=== PATIENT | male | born 1970 | race Caucasian/White ===

== ENCOUNTER 2017-09-10 20:58 | Observation (INO) | payer OTHER, SELFPAY ==
[2017-09-10 20:59] VITALS: BP 146/93; PULSE 76; RESP 17; TEMP 36.6; O2SAT 99; BMI 32.6
[2017-09-10 21:12] VITALS: RESP 16
--- NOTE | 2017-09-10 21:15 | ED.RN ---
ON TRIAGE, PT DENIES ANY CHEST PAIN, WEAKNESS, SLURRED SPEECH. REPORTS HE HAS HAD THIS FOR THREE DAYS, AND HIS FAMILY HIGHLY ENCOURAGED HIM T COME IN.
[2017-09-10 22:12] VITALS: RESP 18
[2017-09-10 22:29] VITALS: BP 130/80; RESP 16
--- NOTE | 2017-09-10 22:41 | CT_ITS ---
STUDY: CT BRAIN WITHOUT CONTRAST REASON FOR EXAM: Male, 47 years old. Vision issues RADIATION DOSAGE (If Supplied By Facility): CTDIvol = ( 60.81 ) mGy, DLP = ( 1021.47 ) mGycm TECHNIQUE: Transaxial CT imaging of the brain was performed without administration of intravenous contrast material. Individualized dose optimization techniques were used for this CT. COMPARISON: 05/16/2016 FINDINGS: Normal soft tissue structures. Normal calvarium. Normal size ventricles and extra-axial spaces for the patient's age. Normal white matter tracts of the cerebral hemispheres. Normal basal ganglia and thalami. Normal brainstem. Normal cerebellum. There is no intracranial hemorrhage. There are no findings of an acute ischemic infarction. Normal visualized paranasal sinuses. CT/Brain/Head without Contrast IMPRESSION: No CT evidence of infarct or hemorrhage. Comment: If there is clinical concern for hyperacute ischemia that is not yet apparent by CT, MRI should be considered if possible. Electronically Signed: Devon Ann MD at 0:20 EDT Tel , Service support ,
--- NOTE | 2017-09-10 22:41 | EKG12_ITS ---
Test Reason : Blood Pressure : / mmHG Vent. Rate : 069 BPM Atrial Rate : 069 BPM P-R Int : 210 ms QRS Dur : 084 ms QT Int : 376 ms P-R-T Axes : 033 011 000 degrees QTc Int : 402 ms Sinus rhythm with 1st degree A-V block Otherwise normal ECG Confirmed by RUSSELL WORLEY, MARY KATE ([id number]), purchase request editor KATHRYN HARRISON ([id number]) on 09/14/2017 12:59:13 PM Referred By: Confirmed By:MAR YKATE WELLS MD
[2017-09-10 23:00] VITALS: RESP 18
[2017-09-10 23:11] LABS: Absolute Lymphocyte Count 2.56 X10^3/ul (0.83-4.51); Absolute Neutrophil Count 1.9 X10^3/uL (2.0-7.7); Basophil# 0.04 X10^3/uL; Basophil% 0.8 % (0-1); Eosinophil# 0.13 X10^3/uL; Eosinophils% 2.5 % (0-5); Hematocrit 44.8 % (40-54); Hemoglobin 15.3 g/dl (13.0-16.5); Lymphocyte # 2.56 X10^3/ul (4.0); Lymphocyte % 48.9 % (19-41); Mean Corp Hgb Conc 34.2 g/gl (32-36); Mean Corpuscular Hgb 30.7 pg (27.0-32.0); Monocyte# 0.63 X10^3/uL; Neutrophil # 1.88 X10^3/uL (2.7-7.7); Neutrophil % 35.8 % (47-70); POSITIVE COUNT NO; POSITIVE DIFFERENTIAL NO; POSITIVE MORPHOLOGY NO; Platelet Count 211 K/mm3 (150-450); RBC Distribution Width CV 13.1 % (11.6-14.6); RBC Distribution Width SD 42.5 fl (35.1-43.9); Red Blood Count 4.98 M/mm3 (4.6-6.2); White Blood Count 5.2 K/mm3 (4.4-11.0)
[2017-09-10 23:22] LABS: Anion Gap 4 (5-15); BUN 18 mg/dL (7-18); BUN/Creat Ratio 21.7 RATIO (10-20); Calcium,Total 8.5 mg/dL (8.5-10.1); Chloride 104 mmol/L (98-107); Creatinine, Serum 0.83 mg/dL (0.70-1.30); EST Glomerular Filtration Rate 105 mL/min (>60); Est Glom Filt Rate - Afr Amer 128 mL/min (>60); Estimated Creatinine Clearance 106.45 ml/min; Glucose 85 mg/dL (74-106); Sodium Level 139 mmol/L (136-145)
[2017-09-10 23:24] LABS: Valproic Acid (Depakene) Level 34 ug/mL (50-100)
[2017-09-11] VITALS (9 sets, daily range): BP systolic 114–137; BP diastolic 65–90; PULSE 67–80; RESP 16; TEMP 36.4–36.7; O2SAT 95–98; BMI 30.9
--- NOTE | 2017-09-11 00:41 | ED.VISSUMM ---
- ER Visit Summary Date of Service: 09/11/17 Chief Complaint: Visual disturbance History of Present Illness: The patient is a 47 M presenting with 2-3 days of halos in his visual webb. He states in the left eye, it is a complete [place] in all 4 quadrants. It is different colors and appears somewhat blurry in the [place] but otherwise his vision is fine and he has no visual field cuts. In the right eye, it is only in the lower visual field, and specifically, only in the nasal lower visual field. He states earlier today he really felt lousy and tired like he could go to sleep but not near syncopal, and during this these disturbances were much more prominent but otherwise the same. It is never gone away. He denies having any headache although just now, he feels slight retro-orbital discomfort bilaterally. He has had no chest symptoms or palpitations. No fevers or other illnesses. No recent head injuries. He had a stroke 2 years ago that mostly gave him weakness in the right lower extremity. He states he does not know why he had a stroke and does not have any hypercoagulable disorders that he knows of, but has regained full function and has no residual deficits. He takes a baby aspirin a day, today when he felt the symptoms were more prominent he took a full aspirin and states that afterwards he noticed some improvement. Symptoms are still there currently, however. Physical Examination: Blood pressure 130/80 and the rest of his vital signs are normal. Afebrile. Keenly alert and oriented ?3 with a GCS 15. Normal neurologic exam with NIHSS -0. There is no visual field cut. PERRL, EOMI. On gross inspection (without slit lamp), his eyes/conjunctivae/corneas appear normal. Neck is supple, no carotid bruits. Heart is regular no murmurs or tachycardia. Lungs clear. Abdomen benign. Normal reflexes, toes downgoing. Test Results: CT head negative, blood work negative, EKG normal. Emergency Department Course and Treatment: His MRI in 2016 showed a small left parietal lobe infarct and was otherwise normal. Discussed with neurology Dr. León, he agrees that it is not possible to create this pattern of visual field disturbances with one lesion, however worst-case scenario he could have embolic phenomenon. Given his prior history, although he did have negative carotid Dopplers and echocardiogram, he recommends admission for further stroke workup and evaluation. Treatment Plan: Admit Disposition: Admit PCU Impression: Bilateral visual disturbance History ischemic stroke This note was generated with [employer] dictation software. It may contain incorrect words, spelling, and punctuation that were not noted in review of the chart prior to signing ED Disposition - Plan for ED Patient: Disposition: Acute Care Hospital [facility] Chief Complaint: Eye Problem Referrals: Yuki oBrrero MD [Primary Care Provider] -
--- NOTE | 2017-09-11 00:47 | ED.DCSUM_ITS ---
- ER Visit Summary Date of Service: 09/11/17 Chief Complaint: Visual disturbance History of Present Illness: The patient is a 47 M presenting with 2-3 days of halos in his visual webb. He states in the left eye, it is a complete [place] in all 4 quadrants. It is different colors and appears somewhat blurry in the [place] but otherwise his vision is fine and he has no visual field cuts. In the right eye, it is only in the lower visual field, and specifically, only in the nasal lower visual field. He states earlier today he really felt lousy and tired like he could go to sleep but not near syncopal, and during this these disturbances were much more prominent but otherwise the same. It is never gone away. He denies having any headache although just now, he feels slight retro- orbital discomfort bilaterally. He has had no chest symptoms or palpitations. No fevers or other illnesses. No recent head injuries. He had a stroke 2 years ago that mostly gave him weakness in the right lower extremity. He states he does not know why he had a stroke and does not have any hypercoagulable disorders that he knows of, but has regained full function and has no residual deficits. He takes a baby aspirin a day, today when he felt the symptoms were more prominent he took a full aspirin and states that afterwards he noticed some improvement. Symptoms are still there currently, however. Physical Examination: Blood pressure 130/80 and the rest of his vital signs are normal. Afebrile. Keenly alert and oriented ?3 with a GCS 15. Normal neurologic exam with NIHSS -0. There is no visual field cut. PERRL, EOMI. On gross inspection (without slit lamp), his eyes/conjunctivae/corneas appear normal. Neck is supple, no carotid bruits. Heart is regular no murmurs or tachycardia. Lungs clear. Abdomen benign. Normal reflexes, toes downgoing. Test Results: CT head negative, blood work negative, EKG normal. Emergency Department Course and Treatment: His MRI in 2016 showed a small left parietal lobe infarct and was otherwise normal. Discussed with neurology Dr. León, he agrees that it is not possible to create this pattern of visual field disturbances with one lesion, however worst-case scenario he could have embolic phenomenon. Given his prior history, although he did have negative carotid Dopplers and echocardiogram, he recommends admission for further stroke workup and evaluation. Treatment Plan: Admit Disposition: Admit PCU Impression: Bilateral visual disturbance History ischemic stroke This note was generated with [employer] dictation software. It may contain incorrect words, spelling, and punctuation that were not noted in review of the chart prior to signing ED Disposition - Plan for ED Patient: Disposition: Acute Care Hospital [facility] Chief Complaint: Eye Problem Referrals: Yuki Borrero MD [Primary Care Provider] -
--- NOTE | 2017-09-11 01:10 | HP.PCM_ITS ---
Problem List (1) History of stroke Status: Chronic (2) Visual field defect Status: Acute History of Present Illness Date of Admission: 09/11/17 Chief Complaint: loss of peripheral vision left eye and partial loss in right eye The patient is a 47 year old male with a significant past medical history of left parietal stroke two years ago presents to the ER with change in vision that started three days ago. He states he has had blurry vision in his left eye and difficulty seeing things when looking down with his right eye. He denies chest pain,shortness of breath no fevers or chills, and no head aches. He has no loss of motor function, ataxia or dysarthria. CT scan of the head is negative for acute changes. In consult with Dr León it was determined that admission with an MRI was warranted due to his past history of CVA. He denies any chemical exposure, no recent travels and he drinks alcohol very rarely. Past Medical History Past Medical History (Chronic Problems): Chronic Problems History of stroke (Chronic) Allergies No Known Allergies Allergy (Verified 09/10/17 20:58) Home Medications: Ambulatory Orders Medication Instructions Recorded Sertraline HCl [Zoloft] 150 mg PO DAILY 05/07/16 Aspirin [Aspirin, Baby] 81 mg PO DAILY@0800 #0 tab.chew 05/08/16 Simvastatin [Zocor] 80 mg PO QHS #30 tablet 05/08/16 Divalproex Sodium [Depakote] 500 mg PO DAILY #30 tablet 05/16/16 Surgical History: no surgical history Smoking Status: Never smoker - *Family History Paternal History Items: Heart Disease, - - multiple people with heart disease on fathers side, father of cancer of unkown source. Review of Systems Constitutional: Denies: Chills, Fever, Weight Change Eyes: Reports: Vision Change HEENT: Denies: Head Aches, Sinus Congestion, Sinus Drainage Cardiovascular: Denies: Chest Pain, Palpitations Respiratory: Denies: Cough, Shortness of breath at rest, Sputum production Gastrointestinal: Denies: Abdominal Pain, Nausea, Vomiting Genitourinary: Denies: Dysuria Musculoskeletal: Denies: Joint Pain, Joint Tenderness Skin: Denies: Rash, Wounds Neurological: Denies: Numbness, Tingling, Focal weakness Psychiatric: Denies: Anxiety, Depression, Homicidal Ideations, Suicidal Ideations Hematologic/ Lymphatic: Denies: Easy Bruising, Easy Bleeding VTE Information - Inpt Only VTE Present on Admission: No VTE Mechan Device Prophylaxis: None VTE Pharm Prophylaxis ordered?: Yes Patient Problems: Active and Suspected Problems Visual field defect (Acute) - Physical Exam General: Alert, Oriented x3, Cooperative HEENT: Atraumatic, PERRLA, EOMI, Normocephalic Neck: Supple, No JVD, Negative Carotid Bruits Lungs: Clear to auscultation, Normal air movement, No rhonchi, No wheeze, No rales Cardiovascular: Regular rate, Regular Rhythm, Normal S1, Normal S2, No murmurs Abdomen: Bowel Sounds Present, Soft, Non Tender Extremities: No edema, Capillary Refill Less than 3 Seconds Skin: No rashes, No breakdown Musculoskeletal: No Tenderness to Palpation of Joints or Extremities Neurological: Cranial nerves II-XII grossly intact Psych/Mental Status: Normal Affect, Appropriate Vital Signs Temp Pulse Resp BP Pulse Ox 97.9 F 76 18 130/80 H 99 09/10/17 20:59 09/10/17 20:59 09/10/17 23:00 09/10/17 22:29 09/10/17 20:59 Oxygen Delivery Method Room Air Weight: 214 lb 11.684 oz Body Mass Index (BMI) 32.6 Finger Stick Blood Glucose 108 Laboratory Tests Past 24 Hrs 09/10/17 09/10/17 09/10/17 22:55 22:55 22:55 WBC 5.2 RBC 4.98 Hgb 15.3 Hct 44.8 MCV 90.0 MCH 30.7 MCHC 34.2 RDW 13.1 RDW Differential 42.5 Plt Count 211 MPV 9.0 Immature Gran % (Auto) 0.000 Neut % (Auto) 35.8 L Lymph % (Auto) 48.9 H [place] % (Auto) 12.0 H Eos % (Auto) 2.5 Baso % (Auto) 0.8 Absolute Neuts (auto) 1.9 L Absolute Lymphs (auto) 2.56 Total Counted Not Reportable Sodium 139 Potassium 4.0 Chloride 104 Carbon Dioxide 31.0 Anion Gap 4 L BUN 18 Creatinine 0.83 Estim Creat Clear Calc 106.45 Est GFR (MDRD) Af Amer 128 Est GFR (MDRD) Non-Af 105 BUN/Creatinine Ratio 21.7 H Glucose 85 Calcium 8.5 Valproic Acid 34 L Assessment/Plan Active and Suspected Problems Visual field defect (Acute) Chronic conditions - History of Left Parietal stroke Plan - admit to PCU - neuro checks per routine protocol - ASA daily - MRI head in am - Consult Dr León for neuro evaluation - LMWH for DVT prophylaxis - continue routine home medications Code Visit OBSV E&M: 66821 Initial observation care L2
--- NOTE | 2017-09-11 01:37 | MRI_ITS ---
STUDY: MRA OF THE HEAD WITHOUT CONTRAST REASON FOR EXAM: Male, 47 years old. History of CVA, vision changes x 2 days, seeing halos. TECHNIQUE: 3-D [id number] (TOF) imaging was performed with MIPs. The study was performed unenhanced. COMPARISON: None. FINDINGS: Normal bilateral petrous carotid arteries. Normal right cavernous carotid artery with a normal supraclinoid bifurcation. Normal left cavernous carotid artery with a normal supraclinoid bifurcation. Normal right A1 segments of the anterior cerebral artery. Normal left A1 segments of the anterior cerebral artery. Normal intact anterior communicating artery (ACOM). Normal bilateral A2 segments of the anterior cerebral arteries. Normal right M1 and M2 segments of the middle cerebral arteries, with a normal M1 bifurcation. Normal left M1 and M2 segments of the middle cerebral arteries, with a normal M1 bifurcation. Normal bilateral vertebral arteries. Normal basilar artery with a normal basilar bifurcation. The visualized bilateral superior cerebellar (SCA) arteries are normal. Normal bilateral P1, P2 and visualized P3 segments of the posterior cerebral arteries. There is no demonstrated aneurysm of the [place]. There is no major vessel occlusion or hemodynamically significant stenosis. There is no demonstrated abnormality of the visualized brain. MRI/MRA Head ONLY without Contrast IMPRESSION: Normal MRA of the head Electronically Signed: Anna Sanon MD at 10:11 EDT Tel , Service support ,
--- NOTE | 2017-09-11 02:23 | NURSING ---
Pt c/o blurry vision around edge of visual field on left side.
--- NOTE | 2017-09-11 05:33 | NURSING ---
Pt denies visual blurriness at this time.
[2017-09-11 07:18] LABS: Cholesterol 127 mg/dL (200); High Density Lipoprotein 41 mg/dL; Triglycerides 264 mg/dL; Very Low Density Lipoprotein 53 mg/dL (5-40)
--- NOTE | 2017-09-11 08:31 | MRI_ITS ---
STUDY: MRI BRAIN WITHOUT CONTRAST REASON FOR EXAM: Male, 47 years old. cva; vision change- seeing halo, hx prev cva 2 yrs ago. TECHNIQUE: Standardized multiplanar fat and water weighted pulse sequences were obtained. COMPARISON: May 08, 2016 FINDINGS: Normal size of the ventricles and extra-axial spaces for the patient's age. There are a limited number of small white matter hyperintensities, distributed throughout the deep white matter tracts of the cerebral hemispheres, nonspecific but most commonly seen with minimal chronic white matter ischemic changes. Normal bilateral basal ganglia. Normal thalami. There is no extra-axial fluid accumulation. Normal flow voids within the major intracranial circulation suggesting patency by spin echo criteria. Normal sella turcica, pituitary gland, infundibular stalk, optic chiasm and hypothalamus. Normal tectal plate and pineal gland. Normal midbrain, main and medulla. Normal cerebellum. Normal basal cisterns. Normal bilateral temporal bones. Normal bilateral internal auditory canals. No demonstrated orbital abnormality, within the constraints of a routine brain study. Normal visualized paranasal sinuses. Normal calvarium and skull base. Normal visualized soft tissue structures. Normal visualized upper cervical spine. MRI/Brain without Contrast IMPRESSION: No acute intracranial abnormality. Electronically Signed: Anna Sanon MD at 10:20 EDT Tel , Service support ,
[2017-09-11 08:41] LABS: Amphetamine Urine VISTA NEGATIVE (<1000 ng/mL); Barbiturate Urine VISTA NEGATIVE (< 200 ng/mL); Benzodiazepine Urine VISTA NEGATIVE (< 200 ng/mL); Cocaine Urine VISTA NEGATIVE (< 300 ng/mL); Ecstacy Urine VISTA NEGATIVE (< 500 ng/mL); Methadone Urine VISTA NEGATIVE (< 300 ng/mL); PCP Urine VISTA NEGATIVE (< 25 ng/mL); THC Urine VISTA NEGATIVE (< 50 ng/mL); Vista UDS pH Range 5
[2017-09-11] MEDS: Divalproex Sodium 250 MG Tablet 500 MG PO (10:15)
[2017-09-11] MEDS: Aspirin 81 MG TAB.CHEW PO (10:15)
[2017-09-11] MEDS: Enoxaparin 40 MG/0.4 ML Syringe SC (10:16)
[2017-09-11] MEDS: Sertraline 50 MG Tablet 150 MG PO (10:17)
--- NOTE | 2017-09-11 12:12 | CON.PCM_ITS ---
Reason for Consult Date of Consultation: 09/11/17 Reason for Consultation: blurry vision History of Present Illness: The patient is a 47 year old right handed white male admitted last night with vision changes, describes outer ring of my vision was blurry, now resolved. without other neurologic symptoms other than felt a little off. noted blood pressure mildly elevated at home 140/93. no headache, reports rare headache, 2x/ yr. has been taking asa since 04/26 stroke which was attributed to cholesterol, however mri at that time equivocal. per h&p:The patient is a 47 year old male with a significant past medical history of left parietal stroke two years ago presents to the ER with change in vision that started three days ago. He states he has had blurry vision in his left eye and difficulty seeing things when looking down with his right eye. He denies chest pain,shortness of breath no fevers or chills, and no head aches. He has no loss of motor function, ataxia or dysarthria. CT scan of the head is negative for acute changes. In consult with Dr León it was determined that admission with an MRI was warranted due to his past history of CVA. He denies any chemical exposure, no recent travels and he drinks alcohol very rarely. Past Medical History Past Medical History (Chronic Problems): Chronic Problems History of stroke (Chronic) Allergies No Known Allergies Allergy (Verified 09/10/17 20:58) Home Medications: Ambulatory Orders Medication Instructions Recorded Sertraline HCl [Zoloft] 150 mg PO DAILY 05/07/16 Aspirin [Aspirin, Baby] 81 mg PO DAILY@0800 #0 tab.chew 05/08/16 Simvastatin [Zocor] 80 mg PO QHS #30 tablet 05/08/16 Divalproex Sodium [Depakote] 500 mg PO DAILY #30 tablet 05/16/16 Surgical History: no surgical history Smoking Status: Former smoker - *Family History Paternal History Items: Heart Disease, - - multiple people with heart disease on fathers side, father of cancer of unkown source. Review of Systems Constitutional: Denies: Chills, Fever, Weight Change HEENT: Denies: Head Aches, Sinus Congestion, Sinus Drainage Cardiovascular: Denies: Chest Pain, Palpitations Respiratory: Denies: Cough, Shortness of breath at rest, Sputum production Gastrointestinal: Denies: Abdominal Pain, Nausea, Vomiting Genitourinary: Denies: Dysuria Musculoskeletal: Denies: Joint Pain, Joint Tenderness Skin: Denies: Rash, Wounds Neurological: Denies: Numbness, Tingling, Focal weakness Psychiatric: Denies: Anxiety, Depression, Homicidal Ideations, Suicidal Ideations Hematologic/ Lymphatic: Denies: Easy Bruising, Easy Bleeding Patient Problems: Active and Suspected Problems Visual field defect (Acute) - Physical Exam General: Alert, Oriented x3, Cooperative HEENT: Atraumatic, PERRLA, EOMI, Normocephalic Neck: Supple, No JVD, Negative Carotid Bruits Lungs: Clear to auscultation, Normal air movement Cardiovascular: Regular rate, No murmurs Abdomen: Bowel Sounds Present, Soft, Non Tender Extremities: No edema, Capillary Refill Less than 3 Seconds Skin: No rashes, No breakdown Musculoskeletal: No Tenderness to Palpation of Joints or Extremities Neurological: Cranial nerves II-XII grossly intact Psych/Mental Status: Normal Affect, Appropriate Vital Signs Temp Pulse Resp BP Pulse Ox 36.7 C 68 16 116/69 96 09/11/17 08:49 09/11/17 11:03 09/11/17 08:49 09/11/17 08:49 09/11/17 08:49 Oxygen Delivery Method Room Air Weight: 92.2 kg Body Mass Index (BMI) 30.9 Intake and Output for Last 24 Hours 09/09/17 09/10/17 09/11/17 23:59 23:59 23:59 Intake Total 0 / 0 Balance 0 / 0 Laboratory Tests Past 24 Hrs 09/11/17 09/11/17 06:25 08:00 Triglycerides 264 H Cholesterol 127 LDL Cholesterol 33 VLDL Cholesterol 53 H HDL Cholesterol 41 Urine Opiates Screen NEGATIVE Urine Methadone Screen NEGATIVE Ur Barbiturates Screen NEGATIVE Ur Phencyclidine Scrn NEGATIVE Ur Amphetamines Screen NEGATIVE U Methamphetamin-MDMA NEGATIVE U Benzodiazepines Scrn NEGATIVE Urine Cocaine Screen NEGATIVE U Cannabinoids Screen NEGATIVE Ur Drug Screen Comment Current Home Med List Medication Instructions Recorded Confirmed Type Sertraline HCl [Zoloft] 150 mg PO DAILY 05/07/16 09/11/17 History Aspirin [Aspirin, Baby] 81 mg PO DAILY@0800 #0 tab.chew 05/08/16 09/11/17 Rx Simvastatin [Zocor] 80 mg PO QHS #30 tablet 05/08/16 09/11/17 Rx Divalproex Sodium [Depakote] 500 mg PO DAILY #30 tablet 05/16/16 09/11/17 Rx mri reviewed, normal Assessment/Plan Active and Suspected Problems Visual field defect (Acute) migraine equivalent: resolved ok to dc rx headaches as needed asa daily
--- NOTE | 2017-09-11 13:33 | PCM.DC ---
- Discharge Diagnoses Current Active Problems: Current Active and Chronic Problems History of stroke (Chronic) Visual field defect (Acute) You will use the following diet at home:: Regular Discharge Activity: Return to Normal Activity Allergies/Adverse Reactions: Allergies No Known Allergies Allergy (Verified 09/10/17 20:58) Medications to take at Discharge Sertraline HCl [Zoloft] 150 mg PO DAILY 05/07/16 Aspirin [Aspirin, Baby] 81 mg PO DAILY@0800 #0 tab.chew 05/08/16 Simvastatin [Zocor] 80 mg PO QHS #30 tablet 05/08/16 Divalproex Sodium [Depakote] 500 mg PO DAILY #30 tablet 05/16/16 Primary Care Physician: Yuki Borrero MD [Primary Care Provider] - Within 2 Weeks Proposed Discharge Date: 09/11/17
--- NOTE | 2017-09-11 13:34 | PCM.DC.SUM ---
Discharge Date and Diagnosis - Problem List Patient Problems: Active and Suspected Problems Visual field defect (Acute) Date of Admission: 09/11/17 Date of Discharge: 09/11/17 - Primary Discharge Diagnosis Active and Suspected Problems Visual field defect (Acute) - Secondary Discharge Diagnosis Chronic Problems History of stroke (Chronic) Hospital Course and Treatment Imaging Results: 09/11/17 08:31 MRI Brain [Brain without Contrast] [MRI] Urgent Operations: None Summary of Care Provided: This is a 47 year old white male history of previous CVA who was admitted last night with vision changes, whic he described my outer ring of my vision was blurry, this has now resolved. without other neurologic symptoms. Was first evaluated in the emergency room with a CT scan of the brain that was unremarkable. He was then admitted to PCU and MRI of the brain as well as MRA of the brain was obtained which was unremarkable. Neurology saw this patient and recommended to continue on his aspirin and statin for his 2/2 stroke prevention. He was then discharged home in a stable condition symptom-free. On exam at the time of discharge; vital signs were stable. He was alert and oriented to time place and person. He did not appear to be any form of distress. S1 and S2 heard no murmur or gallop Lung exam was clear to auscultation with no adventitious sounds. Abdomen was soft nontender with normal bowel sounds. extremity exam did not reveal any edema, palpable pulses bilaterally. Neurologic exam was grossly intact. Discharge Activity: Return to Normal Activity Home Medications: Medications to take at Discharge Sertraline HCl [Zoloft] 150 mg PO DAILY 05/07/16 Aspirin [Aspirin, Baby] 81 mg PO DAILY@0800 #0 tab.chew 05/08/16 Simvastatin [Zocor] 80 mg PO QHS #30 tablet 05/08/16 Divalproex Sodium [Depakote] 500 mg PO DAILY #30 tablet 05/16/16 Primary Care Physician: Yuki Borrero MD [Primary Care Provider] - Within 2 Weeks Medical Necessity - Tobacco Use Smoking Status: Former smoker Meaningful Use Info Meaningful Use Diagnoses (Choose all that apply): None applicable Code Visit OBSV E&M: 41130 Observation care discharge
--- NOTE | 2017-09-11 14:51 | NURSING ---
Reviewed and agreed on all charting with Hiram Hernandez RN
== END 2017-09-11 13:33 | disposition home or self-care (01) ==
LOC: ED 09-11 00:47 → PCU 09-11 01:20
PROVIDERS: Admitting Provider Family Medicine; Emergency Provider Emergency Medicine; Family Provider Internal Medicine; PCP Internal Medicine; Visit Provider Internal Medicine
DX: H53.40 Unspecified visual field defects (principal); Z87.891 Personal history of nicotine dependence; I69.341 Monoplegia of lower limb following cerebral infarction affecting right dominant side; Z79.899 Other long term (current) drug therapy; Z79.82 Long term (current) use of aspirin
CPT/HCPCS: 36415; 70450; 70544; 70551; 80048; 80061; 80164; 80307; 85025; 93005; 96372; 97802; 99218; 99282; 99406; A4216; G0378

== ENCOUNTER 2019-08-01 08:05 | Observation (INO) | payer OTHER, SELFPAY ==
[2019-08-01] VITALS (15 sets, daily range): BP systolic 120–157; BP diastolic 69–98; PULSE 57–85; RESP 12–19; TEMP 36.3–36.8; O2SAT 92–98; BMI 30.4; BMI 31.7; BMI 31.8
--- NOTE | 2019-08-01 08:31 | CT_ITS ---
STUDY: CT BRAIN WITHOUT CONTRAST REASON FOR EXAM: Male, 49 years old. Right arm numbness. TWO PRIOR CVA RADIATION DOSAGE (If Supplied By Facility): CTDIvol = ( 44.99 ) mGy, DLP = ( 829.85 ) mGycm TECHNIQUE: Transaxial CT imaging of the brain was performed without administration of intravenous contrast material. Individualized dose optimization techniques were used for this CT. COMPARISON: Comparison is made with prior study dated September 10, 2017. FINDINGS: Normal soft tissue structures. Normal calvarium. Normal size ventricles and extra-axial spaces for the patient''s age. Normal white matter tracts of the cerebral hemispheres. Focal area of decreased attenuation in the right thalamus suggestive of subacute infarct. Normal brainstem. Normal cerebellum. There is no intracranial hemorrhage. There are no findings of an acute ischemic infarction. Normal visualized paranasal sinuses. CT/Brain/Head without Contrast IMPRESSION: Focal decreased density in the right thalamus as described. No intracranial hemorrhage. N.B. : The above information has been verbally conveyed by Pollo López to Dr Bill MD, on 08/01/2019 08:44:36 (ET). Electronically Signed: Pollo López, at 8:46 EST , Service support ,
--- NOTE | 2019-08-01 08:31 | RAD_ITS ---
STUDY: X-RAY CHEST REASON FOR EXAM: Male, 49 years old. STROKE. RT ARM NUMBNESS/HEAVINESS SINCE LAST NIGHT. HX CVA X 2 TECHNIQUE: Single AP portable view of the chest. COMPARISON: Comparison is made with prior examination dated May 07, 2016. FINDINGS: EKG electrodes are seen. The lungs are clear and expanded. There is no demonstrated pleural abnormality. Normal size heart. Normal mediastinum and chely. Normal visualized pulmonary arteries. Normal visualized aortic arch and descending thoracic aorta. There are mild degenerative changes of the visualized thoracic spine. Normal visualized ribs, clavicles, and shoulders. There is no demonstrated abnormality of the visualized soft tissue structures of the upper abdomen. RAD/Chest 1 View IMPRESSION: Normal x-ray examination of the chest. Electronically Signed: Pollo López, at 9:55 EST , Service support ,
--- NOTE | 2019-08-01 08:31 | EKG12_ITS ---
Test Reason : CVA Blood Pressure : / mmHG Vent. Rate : 070 BPM Atrial Rate : 070 BPM P-R Int : 198 ms QRS Dur : 090 ms QT Int : 370 ms P-R-T Axes : 034 007 -02 degrees QTc Int : 399 ms Normal sinus rhythm Normal ECG Confirmed by THANH WORLEY, JUSTINA ([id number]), managing editor CHEPE BREAUX ([id number]) on 08/04/2019 2:23:22 PM Referred By: AGNES Confirmed By:OSMEL LAW MD
--- NOTE | 2019-08-01 08:32 | CT_ITS ---
STUDY: CTA HEAD AND NECK WITH CONTRAST REASON FOR EXAM: Male, 49 years old. CVA, right arm numbness, weakness since 7pm yesterday, symptoms somewhat improved. Hx CVA x 2. RADIATION DOSAGE (If Supplied By Facility): CTDIvol = ( 20.05 ) mGy, DLP = ( 789.59 ) mGycm TECHNIQUE: CT angiography was performed with a multi-detector CT scanner. Data acquisition was obtained from the skull base through the vertex following intravenous administration of 100mL [id number]. MIP images were reconstructed from the axial data set. Post-processing of the angiographic images was performed, with multiplanar reformation and 3D reconstruction. Individualized dose optimization techniques were used for this CT. COMPARISON: No relevant priors. FINDINGS: Normal bilateral petrous carotid arteries. Normal right cavernous carotid artery with a normal supraclinoid bifurcation. Normal left cavernous carotid artery with a normal supraclinoid bifurcation. Normal right A1 segments of the anterior cerebral artery. Normal left A1 segments of the anterior cerebral artery. Normal intact anterior communicating artery (ACOM). Normal bilateral A2 segments of the anterior cerebral arteries. Normal right M1 and M2 segments of the middle cerebral arteries, with a normal M1 bifurcation. Normal left M1 and M2 segments of the middle cerebral arteries, with a normal M1 bifurcation. Normal right posterior communicating artery (PCOM). Normal left posterior communicating artery (PCOM). Normal bilateral vertebral arteries. Normal basilar artery with a normal basilar bifurcation. The visualized bilateral superior cerebellar (SCA) arteries are normal. Normal bilateral P1, P2 and visualized P3 segments of the posterior cerebral arteries. There is no demonstrated aneurysm of the [place]. There is no demonstrated abnormality of the visualized brain. AORTIC ARCH: Normal visualized aortic arch. Normal origins of the brachiocephalic, left common carotid, and left subclavian arteries. RIGHT CAROTID ARTERIES: Normal right common carotid artery (CCA). Normal right common carotid bulb. Normal origin of the right internal carotid (ICA) artery without a hemodynamically significant stenosis. Normal visualized cervical portion of the right internal carotid artery. Normal origin of the right external carotid artery (ECA). LEFT CAROTID ARTERIES: Normal left common carotid artery (CCA). Normal left common carotid bulb. Normal origin of the left internal carotid (ICA) artery without a hemodynamically significant stenosis. Normal visualized cervical portion of the left internal carotid artery. Normal origin of the left external carotid artery (ECA). VERTEBRAL ARTERIES: Normal bilateral vertebral arteries. CT/CTA Head AND Neck W/ Contrast IMPRESSION: Normal CTA Head and neck with contrast. N.B. : The above information has been verbally conveyed by Pollo López to Noah Khan on 08/01/2019 08:56:27 (ET). Electronically Signed: Pollo López, at 8:59 EST , Service support ,
--- NOTE | 2019-08-01 08:33 | ED.VIS.GEN ---
History of Present Illness Chief Complaint: Numb/Ting Informant: Patient Narrative: Patient presents with right arm heaviness. Patient states that last night at approximately 0130 hours he was laying on his stomach on his playing a game on his phone. He states his whole right arm went numb and was not moving. After about 4 to 5 minutes he states he began to get some motion throughout the night it improved. He states now just feels heavy and does not feel the same as the left. He denies any headache. He denies any face or speech issues. Patient had a prior left parietal stroke in April 2016. He recovered from that. He was on aspirin and cholesterol therapy but has subsequently stopped. When he got up this morning he went to work and stopped at the clinic and they advised him to come over. He is right-hand dominant. Past Medical History - Allergies and Home Meds Allergies/Adverse Reactions: Allergies No Known Allergies Allergy (Verified 08/01/19 08:05) Primary Care Physician: Yuki Borrero MD [Primary Care Provider] - Surgical History: no surgical history Smoking Status: Former smoker - Family History Paternal Family History: Reports: Heart Disease, - - multiple people with heart disease on fathers side, father of cancer of unkown source. Review of Systems General: Denies: Chills, Fever, Sweats Eyes: Denies: Visual changes - bilaterally, Diplopia ENT: Denies: Rhinorrhea, Sore throat Cardiovascular: Denies: Chest pain, Palpitations Respiratory: Denies: Dyspnea, Cough, Dyspnea on exertion Gastrointestinal: Denies: Abdominal pain, Nausea, Vomiting, Diarrhea, Melena, Hematochezia Genitourinary: Denies: Dysuria, Hematuria, Frequency Musculoskeletal: Denies: Back pain, Extremity Pain Skin: Denies: Rash, Wounds Neurological: Reports: Weakness, Numbness. Denies: Headache Physical Exam Vital Signs/Narrative: Vital Signs Temp Pulse Resp BP Pulse Ox 08/01/19 08:06 97.3 F L 78 16 146/77 H 98 Inital Vital Signs reviewed: Yes General: Well nourished, Well developed, No Acute Distress Head: Normocephalic, Atraumatic Eyes: Perrl, EOMI ENT: Moist mucous membranes, No rhinorrhea Neck: Supple, Nontender Cardiovascular: Regular rate, Regular rhythm, No murmurs Respiratory: No distress, CTA bilaterally, Chest nontender Abdomen: Soft, Nontender, Nondistended, Normal bowel sounds Back: Nontender, Normal Inspection Extremities: Nontender, No edema Skin: Normal color, No rash Neurological: Alert, Oriented x3, Cranial nerves II-XII grossly intact, Normal Sensation, - - The right arm is able to stay up against 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 Normal sensation. NIH score 1. Psychological: Normal affect, Normal Mood Diagnostic/Tx/Re-eval - Rhythm Strip Rhythm Strip: Sinus Rhythm Rate: 70 Ectopy: None - EKG Initial EKG Interpretation: Sinus Rhythm - Sinus rhythm at a rate of 70 without ectopy or concerning features of ACS. This appears unchanged from September 10, 2017 - Medical Decision Making Stroke team was called. Initial CT shows old lacunar infarct. No acute findings were noted. Case was discussed with [facility] neurology. Patient is not a candidate for intervention at this time. - Critical Care Time Critical care time (excluding procedures): 30-74 minutes - 35 MIN ED Disposition - Plan for ED Patient: Disposition: Acute Care Hospital [facility] Diagnosis: CVA (cerebral vascular accident) Referrals: Yuki Borrero MD [Primary Care Provider] -
--- NOTE | 2019-08-01 08:35 | NURSING ---
FAXED FACESHEET TO [facility]
[2019-08-01] MEDS: 0.9% Normal Saline 1,000 ML 999 ML IV (08:50)
[2019-08-01 08:55] LABS: Absolute Neutrophil Count 2.7 X10^3/uL (2.0-7.7); Basophil# 0.05 X10^3/uL; Eosinophils% 2.1 % (0-5); Hematocrit 46.3 % (40-54); Hemoglobin 15.6 g/dL (13.0-16.5); Lymphocyte % 28.8 % (19-41); Mean Corp Hgb Conc 33.7 g/dL (32-36); Mean Corpuscular Hgb 30.1 pg (27.0-32.0); Mean Corpuscular Volume 89.4 fL (80-94); Monocyte# 0.62 X10^3/uL; Monocyte% 12.8 % (0-10); NRBC Flagged by Analyzer 0 % (0-5); Neutrophil # 2.68 X10^3/uL (2.7-7.7); Neutrophil % 55.1 % (47-70); Platelet Count 245 K/mm3 (150-450); RBC Distribution Width CV 12.9 % (11.6-14.6); RBC Distribution Width SD 42.3 fl (35.1-43.9); Red Blood Count 5.18 M/mm3 (4.6-6.2); White Blood Count 4.9 K/mm3 (4.4-11.0)
[2019-08-01 09:03] LABS: Prothrombin Time (Protime)PT. 13.1 SECONDS (11.7-14.9)
[2019-08-01 09:04] LABS: Partial Thromboplast Time 27.1 Seconds (24.1-36.2)
[2019-08-01 09:07] LABS: Anion Gap 2 (5-15); BUN 18 mg/dL (7-18); Calcium,Total 8.9 mg/dL (8.5-10.1); Chloride 108 mmol/L (98-107); EST Glomerular Filtration Rate 84 mL/min (>60); Est Glom Filt Rate - Afr Amer 102 mL/min (>60); Estimated Creatinine Clearance 86.45 ml/min; Glucose 97 mg/dL (74-106); Potassium 3.9 mmol/L (3.5-5.1); Sodium Level 140 mmol/L (136-145)
[2019-08-01 09:10] LABS: Bedside Glucose 85 mg/dL (70-110)
--- NOTE | 2019-08-01 09:25 | NURSING ---
PCU ACUTE STROKE PAINTSIL
--- NOTE | 2019-08-01 09:28 | PCM.HP.STD ---
Problem List (1) TIA (transient ischemic attack) Status: Chronic (2) Right sided weakness Status: Acute History of Present Illness Date of Admission: 08/01/19 Chief Complaint: Right upper extremity numbness - 1 day The patient is a 49 year old M with PMHx of TIA, hyperlipidemia who has been off his aspirin for months who comes in with right upper extremity numbness and tingling that started suddenly at 1 AM on the day of admission. Patient was lying on his bed, on his stomach playing on his phone when he suddenly felt that the right side of his hand had gone numb and . He was unable to use the arm. The strength in the arm gradually got somehow better but his tingling and numbness persisted and he came to the emergency department. At the time of being seen, patient still has some numbness and tingling in the arm. His strength has improved but is now back to normal. Denied any dizziness or palpitations or shortness of breath. Denied any other weakness in any part of his body. Vitals in the ED showed temp 97.3F, HR 78, BP 146/77, RR 16, Spo2 98% on RA. His CBCD and BMP is unremarkable. CT scan of brain shows focal decreased density in the right thalamus. CT of the head and neck was normal. Chest x-ray was unremarkable. Past Medical History Past Medical History (Chronic Problems): Chronic Problems History of stroke (Chronic) TIA (transient ischemic attack) (Chronic) Allergies No Known Allergies Allergy (Verified 08/01/19 08:05) Home Medications: Ambulatory Orders Medication Instructions Recorded Sertraline HCl [Zoloft] 100 mg PO DAILY 05/07/16 Aspirin [Aspirin, Baby] 81 mg PO DAILY@0800 #0 tab.chew 05/08/16 Simvastatin [Zocor] 80 mg PO QHS #30 tablet 05/08/16 Surgical History: no surgical history Psychiatric History: No pertinent psych hx Lives: Spouse/ Significant Other Smoking Status: Former smoker Tobacco Use: Chew Alcohol: Occasional Drugs: None - *Family History Paternal History Items: Heart Disease, - - multiple people with heart disease on fathers side, father of cancer of unkown source. Review of Systems Constitutional: Denies: Anorexia, Chills, Fever, Night Sweats, Malaise, Weakness, Weight Change, Fatigue Eyes: Denies: Blurred vision, Cataracts, Conjunctivae Inflammation, Pain, Redness, Vision Change HEENT: Denies: Difficulty Hearing, Difficulty Swallowing, Head Aches, Hearing Changes, Sinus Congestion, Sinus Drainage Cardiovascular: Denies: Chest Pain, Claudication, Orthopnea, Palpitations, Paroxysmal Noc. Dyspnea Respiratory: Denies: Cough, Hemoptysis, Shortness of breath at rest, Shortness of breath upon exertion, Sputum production Gastrointestinal: Denies: Abdominal Pain, Hematemesis, Hematochezia, Nausea, Vomiting Genitourinary: Denies: Dysuria Musculoskeletal: Denies: Joint Pain, Joint Tenderness Skin: Denies: Rash, Wounds Neurological: Denies: Numbness, Tingling, Focal weakness Psychiatric: Denies: Anxiety, Depression, Homicidal Ideations, Suicidal Ideations Hematologic/ Lymphatic: Denies: Easy Bruising, Easy Bleeding VTE Information - Inpt Only VTE Present on Admission: No VTE Pharm Prophylaxis ordered?: Yes Patient Problems: Active and Suspected Problems CVA (cerebral vascular accident) (Acute) - Physical Exam Vitals/I&O's: Vital Signs Temp Pulse Resp BP Pulse Ox 97.3 F L 68 18 123/91 H 97 08/01/19 08:06 08/01/19 09:01 08/01/19 09:01 08/01/19 09:01 08/01/19 09:01 Oxygen Delivery Method Room Air Weight: 90.718 kg Body Mass Index (BMI) 30.4 Finger Stick Blood Glucose 85 General: Alert, Oriented x3, Cooperative, No apparent distress HEENT: Atraumatic, PERRLA, EOMI, Normocephalic Oral: Moist Mucosa Neck: Supple Lungs: Clear to auscultation, Normal air movement Cardiovascular: Regular rate, Regular Rhythm, Normal S1, Normal S2, No murmurs Abdomen: Bowel Sounds Present, Soft, Non Tender, Non-Distended, No Hepato-splenomegaly Extremities: No edema Skin: No rashes, No breakdown Musculoskeletal: No Tenderness to Palpation of Joints or Extremities Lymphatic: No Cervical, Supraclavicular, or Inguinal Adenopathy Neurological: Cranial nerves II-XII grossly intact, Neuro grossly intact, Motor Exam 5/5 strength throughout - except RUE Psych/Mental Status: Normal Affect, Appropriate Laboratory Results 08/01/19 08:40: WBC 4.9, RBC 5.18, Hgb 15.6, Hct 46.3, MCV 89.4, MCH 30.1, MCHC 33.7, RDW Std Deviation 42.3, RDW Coeff of [place] 12.9, Plt Count 245, MPV 9.0, Immature Gran % (Auto) 0.200, Neut % (Auto) 55.1, Lymph % (Auto) 28.8, [place] % (Auto) 12.8 H, Eos % (Auto) 2.1, Baso % (Auto) 1.0, Absolute Neuts (auto) 2.7, Absolute Lymphs (auto) 1.40, Nucleated RBC % 0 08/01/19 08:40: PT 13.1, INR 1.0, APTT 27.1 08/01/19 08:40: Sodium 140, Potassium 3.9, Chloride 108 H, Carbon Dioxide 30.0, Anion Gap 2 L, BUN 18, Creatinine 1.00, Estim Creat Clear Calc 86.45, Est GFR (MDRD) Af Amer 102, Est GFR (MDRD) Non-Af 84, BUN/Creatinine Ratio 18.0, Glucose 97, Calcium 8.9, Troponin I 0.024 08/01/19 08:46: POC Glucose 85 Current Medications Sodium Chloride () 1,000 mls @ 999 mls/hr IV .Q1H1M ONE Stop: 08/01/19 09:31 Last Admin: 08/01/19 08:50 Dose: 999 mls/hr Documented by: Assessment/Plan All Active Problems Visual field defect (Acute) CVA (cerebral vascular accident) (Acute) Right sided weakness (Acute) Ataxia (Acute) 49 year old M with PMHx of TIA, hyperlipidemia who has been off his aspirin for months who comes in with right upper extremity numbness and tingling that started suddenly at 1 AM on the day of admission. 1. Acute punctate embolic CVA, in a patient with h/o TIA, last one was 2015 CT of the brain showed focal decreased density in the right thalamus MRI of the brain showed punctate infarcts HgbA1c 5.4, lipid profile is pending, 2D-ECHO is pending Off aspirin, increase home atorvastatin to 80 mg p.o. nightly, continue aspirin and plavix Teleneurology consult. 2. Hyperlipidemia, on statin, lipid profile in am 3. Depression, on Zoloft 4. DVT PPx - Heparin SC Code Visit Inpatient E&M: 45004 Init Hosp L3
[2019-08-01] MEDS: Aspirin 325 MG Tablet PO (09:43)
--- NOTE | 2019-08-01 09:54 | ECHOD_ITS ---
Reason For Study: TIA/CVA Procedure This was a 2D Doppler, Color Flow transthoracic echocardiogram. Exam performed portable in patient room. Left Ventricle Normal LV size. The estimated ejection fraction is 60 %. No evidence for diastolic dysfunction. No regional wall motion abnormalities noted. Right Ventricle Normal RV size. Normal systolic function. Atria Normal left atrium. Normal right atrium. No doppler evidence for ASD. Mitral Valve There is no mitral valve stenosis. No mitral valve insufficiency. Tricuspid Valve There is no tricuspid stenosis. No tricuspid valve insufficiency. Unable to estimate RV systolic pressure due to insufficient tricuspid regurgitant envelope. Aortic Valve Trisinus/trileaflet aortic valve. There is no aortic stenosis. No aortic valve insufficiency. Pulmonic Valve There is no pulmonic valvular stenosis. No pulmonic valve insufficiency. Great Vessels Normal aortic root. Pericardium/Pleural No pericardial effusion. Medication Patient had a negative bubble study on previous FANG 06/15/16. MMode/2D Measurements & Calculations LVIDd: 4.2 cm IVSd: 0.94 cm Ao root diam: 2.7 cm LVIDs: 2.7 cm LVPWd: 0.85 cm RVDd: 3.2 cm FS: 34.6 % LAV(MOD-bp): 46.4 ml LA A4 area: 16.1 cm2 LA dimension(2D): 3.7 cm LAV(MOD-bp) Indexed: 22.7 ml/m2 LAV(MOD-sp2): 46.1 ml LAV(MOD-sp4): 46.6 ml RA A4 area: 12.7 cm2 Doppler Measurements & Calculations MV A max sunny: 57.4 cm/sec Lat Peak E' Sunny: 12.8 cm/sec Med Peak E' Sunny: 8.5 cm/sec Ao V2 max: 98.2 cm/sec LV V1 max: 75.0 cm/sec PA V2 max: 109.6 cm/sec Ao max P.9 mmHg LV V1 max P.3 mmHg Interpretation Summary The estimated ejection fraction is 60 %. No evidence for diastolic dysfunction. Ordering Physician: Elizabeth Guzman Referring Physician: Yuki Borrero Performed By: Vida Gibbons RDCS
--- NOTE | 2019-08-01 09:54 | MRI_ITS ---
We are attempting to reach an attending provider to discuss findings. An addendum with communication details will be sent when the communication is complete. STUDY: MRI BRAIN WITHOUT CONTRAST REASON FOR EXAM: Male, 49 years old. Acute CVA, RUE weakness and numbness TECHNIQUE: Standardized multiplanar fat and water weighted pulse sequences were obtained. COMPARISON: CT earlier today, MRI 09/11/2017 FINDINGS: Normal size of the ventricles and extra-axial spaces for the patient''s age. Normal white matter tracts of the supratentorial brain. Examination the diffusion weighted images demonstrates multiple punctate (less than 5 mm) is areas of restricted diffusion throughout the brain parenchyma suggestive of acute embolic infarcts. These are located in the posterior left temporal lobe, posterior left parietal lobe, anterior right parietal lobe and posterior left parietal lobe more superiorly. Normal T2* images of the brain without demonstrated susceptibility artifact. There is no demonstrated hemosiderin stain. Normal bilateral basal ganglia. Normal thalami. There is no extra-axial fluid accumulation. Normal flow voids within the major intracranial circulation suggesting patency by spin echo criteria. Normal sella turcica, pituitary gland, infundibular stalk, optic chiasm and hypothalamus. Normal tectal plate and pineal gland. Normal midbrain, main and medulla. Normal cerebellum. Normal basal cisterns. Normal bilateral temporal bones. Normal bilateral internal auditory canals. No demonstrated orbital abnormality, within the constraints of a routine brain study. Normal visualized paranasal sinuses. Normal calvarium and skull base. Normal visualized soft tissue structures. Normal visualized upper cervical spine. MRI/Brain without Contrast IMPRESSION: Acute punctate embolic infarcts.. Electronically Signed: Abhilash Da Silva MD at 15:21 EST Tel , Service support ,
[2019-08-01] MEDS: 0.9% Saline Lock 10 ML Syringe IV (10:35)
[2019-08-01] MEDS: 0.9% Normal Saline 1,000 ML 100 ML IV (10:35)
[2019-08-01 12:27] LABS: Hemoglobin A1c 5.4 % (4.2-6.3)
[2019-08-01] MEDS: Clopidogrel Bisulfate 75 MG Tablet PO (15:01)
[2019-08-01] MEDS: Heparin Injection (Vial) 5,000 UNIT/ML VIAL 5000 UNIT SC ×2 (15:02→23:02)
--- NOTE | 2019-08-01 15:20 | CASEMGMT ---
JOSE JUAN BATES Assessment Diagnosis: CVA Intro role of CM to patient and his in room. Pt is awake, alert and able to participate in assessment. Pt states he is independent at home, no use of DME. Drives, works and plans to return home on discharge. PCP: Dr. oBrrero Specialist: none- pt does not f/u with neurologist at this time. Anticipate will need neurologist on dc. Insurance:[employer] [facility] [place] Pres[facility] Coverage:yes LNOK:, Irma Martinez Living arrangements: Lives independently with family. Denies any care needs prior to admission. DME:none Transportation: drives or family can drive HHS/SNF:none in past DC Plan: Home on dc. PT/OT evaluations pending. (Update PT/OT that MRI was + for CVA.) JOSE JUAN BATES let pt know if concerns re: dc arise to notify CM. Jasvir COTO RN ACM
--- NOTE | 2019-08-01 17:42 | CPS ---
Continuous Pulse ox at bedside. Patient eating. Patient requested to start CPox after dinner.
--- NOTE | 2019-08-01 20:50 | PCM.PN.BLA ---
Progress Note Tele Neurology called. the patient can be discharged from their perspective. To continue ASA, Plavix, atorvastatin. Teleneurologist to put further recommendations including hypercoagulable panel, Holter and follow of cardiology and Neurology. Attending doctor to follow up in am. STROKE Vital Signs/Narrative: Vital Signs Temp Pulse Resp BP Pulse Ox 08/01/19 20:47 98.2 F 85 16 122/74 H 97 08/01/19 18:30 66 12 124/70 H 98 08/01/19 18:00 66 16 124/70 H 92
[2019-08-01] MEDS: Atorvastatin Calcium 80 MG Tablet PO (23:02)
[2019-08-01] MEDS: Sertraline 100 MG Tablet PO (23:03)
[2019-08-01] MEDS: Famotidine 20 MG Tablet PO (23:03)
[2019-08-02] VITALS (7 sets, daily range): BP systolic 111–133; BP diastolic 67–77; PULSE 50–120; RESP 16; TEMP 36.6–36.7; O2SAT 96–100; BMI 31.7
[2019-08-02] MEDS: Heparin Injection (Vial) 5,000 UNIT/ML VIAL 5000 UNIT SC (05:06)
[2019-08-02 06:38] LABS: Absolute Lymphocyte Count 1.68 X10^3/uL (0.83-4.51); Absolute Neutrophil Count 1.7 X10^3/uL (2.0-7.7); Basophil# 0.04 X10^3/uL; Eosinophil# 0.18 X10^3/uL; Eosinophils% 4.5 % (0-5); Hematocrit 43.3 % (40-54); Hemoglobin 14.8 g/dL (13.0-16.5); Lymphocyte # 1.68 X10^3/ul (4.0); Lymphocyte % 41.7 % (19-41); Mean Corp Hgb Conc 34.2 g/dL (32-36); Mean Corpuscular Hgb 30.6 pg (27.0-32.0); Mean Corpuscular Volume 89.5 fL (80-94); Mean Platelet Vol. 8.7 fl (6.2-12.0); Monocyte# 0.41 X10^3/uL; Monocyte% 10.2 % (0-10); NRBC Flagged by Analyzer 0 % (0-5); Neutrophil # 1.71 X10^3/uL (2.7-7.7); Neutrophil % 42.4 % (47-70); Platelet Count 221 K/mm3 (150-450); RBC Distribution Width CV 12.8 % (11.6-14.6); RBC Distribution Width SD 42.2 fl (35.1-43.9); Red Blood Count 4.84 M/mm3 (4.6-6.2)
[2019-08-02 07:16] LABS: ALB/GLOB Ratio 1.1 RATIO (0.9-2.4); AST(SGOT) 24 U/L (15-37); Alanine Aminotransfer ALT/SGPT 39 U/L (16-61); Albumin, Serum 3.5 g/dL (3.2-5.0); Alkaline Phosphatase 70 U/L (45-117); Anion Gap 6 (5-15); BUN 14 mg/dL (7-18); BUN/Creat Ratio 14.3 RATIO (10-20); Calcium,Total 8.3 mg/dL (8.5-10.1); Chloride 108 mmol/L (98-107); Cholesterol 129 mg/dL (200); Creatinine, Serum 0.98 mg/dL (0.70-1.30); EST Glomerular Filtration Rate 86 mL/min (>60); Est Glom Filt Rate - Afr Amer 104 mL/min (>60); Estimated Creatinine Clearance 88.21 ml/min; Globulin 3.3 g/dL (2.2-4.2); Glucose 94 mg/dL (74-106); High Density Lipoprotein 55 mg/dL; Potassium 4.4 mmol/L (3.5-5.1); Protein, Total 6.8 g/dL (6.4-8.2); Sodium Level 140 mmol/L (136-145); Triglycerides 84 mg/dL; Very Low Density Lipoprotein 17 mg/dL (5-40)
--- NOTE | 2019-08-02 07:35 | PCM.DC ---
- Discharge Diagnoses Current Active Problems: Current Active and Chronic Problems TIA (transient ischemic attack) (Chronic) CVA (cerebral vascular accident) (Acute) Reason(s) for Visit for Discharge Instructions: Right upper extremity You will use the following diet at home:: Cardiac Your food should be the consistency of: Regular Your liquids should be the consistency of: Regular/Thin Discharge Activity: Return to Normal Activity Instructions: Stroke Prevention: Using Blood Thinners (Anticoagulants), What Is Ischemic Stroke?, Stroke, Stroke: Taking Medications Additional Instructions: Continue to take all your medications. Follow-up with neurology, hematology, cardiology in the outpatient. You would need a 30-day event monitor to be placed and will be read. You should follow-up with a neurologist within 30 days. Allergies/Adverse Reactions: Allergies No Known Allergies Allergy (Verified 08/01/19 08:05) Medications to take at Discharge Sertraline HCl [Zoloft] 100 mg PO DAILY 05/07/16 Aspirin [Aspirin, Baby] 81 mg PO DAILY@0800 #0 tab.chew 05/08/16 Atorvastatin Calcium [Lipitor] 80 mg PO QHS 30 Days #30 tab 08/02/19 Clopidogrel Bisulfate [Plavix] 75 mg PO DAILY 30 Days #30 tab 08/02/19 The following prescriptions were given: Atorvastatin Calcium [Lipitor] 80 mg PO QHS 30 Days #30 tab Transmission Status: Pending to [facility]/pharmacy #[id number] Clopidogrel Bisulfate [Plavix] 75 mg PO DAILY 30 Days #30 tab Transmission Status: Pending to [id number] Primary Care Physician: Yuki Borrero MD [Primary Care Provider] - Please follow up with your Primary Care Physician in: within 2 weeks Test Results: Test results from this visit will be discussed in further detail at your follow-up appointment, if applicable. When: Dr. Delatorre, neurology within 2 weeks When: Dr. Lopez Please Follow Up With: in 4 weeks Proposed Discharge Date: 08/02/19
--- NOTE | 2019-08-02 08:04 | PCM.DC.SUM ---
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 No intracranial hemorrhage. N.B. : The above information has been verbally conveyed by Pollo López to Dr Bill MD, on 08/01/2019 08:44:36 (ET). Electronically Signed: Pollo López, at 8:46 EST , Service support , ADDENDUM: 08/01/19 0853 IMPRESSION: Focal decreased density in the right thalamus as described. No intracranial hemorrhage. N.B. : The above information has been verbally conveyed by Pollo López to Dr Bill MD, on 08/01/2019 08:44:36 (ET). Electronically Signed: Pollo López, at 8:46 EST , Service support , Chest X-Ray 08/01/19 08:31 IMPRESSION: Normal x-ray examination of the chest. Electronically Signed: Pollo López, at 9:55 EST , Service support , Head/Neck CTA 08/01/19 08:32 IMPRESSION: Normal CTA Head and neck with contrast. N.B. : The above information has been verbally conveyed by Pollo López to Noah Khan on 08/01/2019 08:56:27 (ET). Electronically Signed: Pollo López, at 8:59 EST , Service support , ADDENDUM: 08/01/19 0906 IMPRESSION: Normal CTA Head and neck with contrast. N.B. : The above information has been verbally conveyed by Pollo López to Noah Khan on 08/01/2019 08:56:27 (ET). Electronically Signed: Pollo López, at 8:59 EST , Service support , Brain MRI 08/01/19 09:54 IMPRESSION: Acute punctate embolic infarcts.. Electronically Signed: Abhilash Da Silva MD at 15:21 EST Tel , Service support , ADDENDUM: 08/01/19 1542 IMPRESSION: Acute punctate embolic infarcts.. N.B. : The above information has been verbally conveyed by Abhilash Da Silva MD to Dr. Megan MD, on 08/01/2019 15:35:51 (ET). Electronically Signed: Abhilash Da Silva MD at 15:21 EST Tel , Service support , Teleneurology Operations: None Procedures: 2-D Echocardiogram Summary of Care Provided: 49 year old M with PMHx of TIA, hyperlipidemia who has been off his aspirin for months who comes in with right upper extremity numbness and tingling that started suddenly at 1 AM on the day of admission. Patient was found to have acute punctate embolic CVA. His initial CT of the brain showed focal decreased density in the right thalamus. MRI of the brain showed punctate infarcts. His HgbA1c was 5.4, lipid profile showed total cholesterol 129, LDL 57, HDL 55. 2D echo was unremarkable. Patient was continued on aspirin, Plavix, atorvastatin 80 mg p.o. daily. Telemetry neurology was consulted. Recommended hypercoagulable panel and 30-day event monitor. Patient was asked to follow-up with hematology for results of the hypercoagulable panel which was taken during this admission. He will follow-up with cardiology in the outpatient as well as with neurology. He was advised to take all his medications and follow a heart healthy diet. Advised to stop chewing tobacco as well as use of alcohol or illicit drugs. Subjective: Day of discharge, patient was seen and examined. Denied any new complaints. Objective: Physical exam: General: Alert, Oriented x3, Cooperative, No apparent distress HEENT: Atraumatic, PERRLA, EOMI, Normocephalic Oral: Moist Mucosa Neck: Supple Lungs: Clear to auscultation, Normal air movement Cardiovascular: Regular rate, Regular Rhythm, Normal S1, Normal S2, No murmurs Abdomen: Bowel Sounds Present, Soft, Non Tender, Non-Distended, No Hepato-splenomegaly Extremities: No edema Skin: No rashes, No breakdown Musculoskeletal: No Tenderness to Palpation of Joints or Extremities Lymphatic: No Cervical, Supraclavicular, or Inguinal Adenopathy Neurological: Cranial nerves II-XII grossly intact, Neuro grossly intact, Motor Exam 5/5 strength throughout - except RUE Psych/Mental Status: Normal Affect, Appropriate - Physical Exam Vitals/I&O's: Vital Signs Temp Pulse Resp BP Pulse Ox 98.0 F 50 L 16 128/77 H 96 08/02/19 04:43 08/02/19 07:04 08/02/19 04:43 08/02/19 04:43 08/02/19 07:35 Oxygen Delivery Method Room Air Weight: 92.7 kg Body Mass Index (BMI) 31.7 Finger Stick Blood Glucose 85 Intake and Output for Last 24 Hours 07/31/19 08/01/19 08/02/19 23:59 23:59 23:59 Intake Total 2248 / 2248 1000 / 1000 Balance 2248 / 2248 1000 / 1000 Laboratory Results 08/01/19 08:40: WBC 4.9, RBC 5.18, Hgb 15.6, Hct 46.3, MCV 89.4, MCH 30.1, MCHC 33.7, RDW Std Deviation 42.3, RDW Coeff of Sameera 12.9, Plt Count 245, MPV 9.0, Immature Gran % (Auto) 0.200, Neut % (Auto) 55.1, Lymph % (Auto) 28.8, Laurens % (Auto) 12.8 H, Eos % (Auto) 2.1, Baso % (Auto) 1.0, Absolute Neuts (auto) 2.7, Absolute Lymphs (auto) 1.40, Nucleated RBC % 0 08/01/19 08:40: PT 13.1, INR 1.0, APTT 27.1 08/01/19 08:40: Sodium 140, Potassium 3.9, Chloride 108 H, Carbon Dioxide 30.0, Anion Gap 2 L, BUN 18, Creatinine 1.00, Estim Creat Clear Calc 86.45, Est GFR (MDRD) Af Amer 102, Est GFR (MDRD) Non-Af 84, BUN/Creatinine Ratio 18.0, Glucose 97, Calcium 8.9, Troponin I 0.024 08/01/19 08:40: Hemoglobin A1c 5.4 08/01/19 08:46: POC Glucose 85 08/01/19 10:14: Troponin I 0.016 08/02/19 06:18: WBC 4.0 L, RBC 4.84, Hgb 14.8, Hct 43.3, MCV 89.5, MCH 30.6, MCHC 34.2, RDW Std Deviation 42.2, RDW Coeff of Sameera 12.8, Plt Count 221, MPV 8.7, Immature Gran % (Auto) 0.200, Neut % (Auto) 42.4 L, Lymph % (Auto) 41.7 H, Laurens % (Auto) 10.2 H, Eos % (Auto) 4.5, Baso % (Auto) 1.0, Absolute Neuts (auto) 1.7 L, Absolute Lymphs (auto) 1.68, Nucleated RBC % 0 08/02/19 06:18: Sodium 140, Potassium 4.4, Chloride 108 H, Carbon Dioxide 26.0, Anion Gap 6, BUN 14, Creatinine 0.98, Estim Creat Clear Calc 88.21, Est GFR (MDRD) Af Amer 104, Est GFR (MDRD) Non-Af 86, BUN/Creatinine Ratio 14.3, Glucose 94, Calcium 8.3 L, Total Bilirubin 0.50, AST 24, ALT 39, Alkaline Phosphatase 70, Total Protein 6.8, Albumin 3.5, Globulin 3.3, Albumin/Globulin Ratio 1.1, Triglycerides 84, Cholesterol 129, LDL Cholesterol 57, VLDL Cholesterol 17, HDL Cholesterol 55 Current Medications Acetaminophen (Tylenol) 650 mg PO Q6H PRN PRN PRN Reason: Pain Score 1-10/Temp > 100.7 F Aspirin (Aspirin, Baby) 81 mg PO DAILY@0800 [facility] Atorvastatin Calcium (Lipitor) 80 mg PO QHS [facility] Last Admin: 08/01/19 23:02 Dose: 80 mg Documented by: Clopidogrel Bisulfate (Plavix) 75 mg PO DAILY [facility] Last Admin: 08/01/19 15:01 Dose: 75 mg Documented by: Famotidine (Pepcid) 20 mg PO BID [facility] Last Admin: 08/01/19 23:03 Dose: 20 mg Documented by: Heparin Sodium (Porcine) (Heparin Na) 5,000 unit SC Q8 [facility] Last Admin: 08/02/19 05:06 Dose: 5,000 unit Documented by: Sodium Chloride () 500 mls @ 15 mls/hr IV PRN PRN PRN Reason: Blood Transfusion Sodium Chloride () 250 mls @ 15 mls/hr IV .[id number] PRN PRN Reason: Saline Flush Sodium Chloride () 250 mls @ 15 mls/hr IV .[id number] PRN PRN Reason: Additional IVPB Infusion Sertraline HCl (Zoloft) 100 mg PO DAILY@2200 [facility] Last Admin: 08/01/19 23:03 Dose: 100 mg Documented by: Sodium Chloride () 10 - 40 ml IV UD PRN PRN Reason: SALINE FLUSH Last Admin: 08/01/19 10:35 Dose: 10 ml Documented by: Discharge Diet: Low fat/ Low Cholesterol, 2000 mg Sodium Diet Discharge Activity: Return to Normal Activity Home Medications: Medications to take at Discharge Sertraline HCl [Zoloft] 100 mg PO DAILY 05/07/16 Aspirin [Aspirin, Baby] 81 mg PO DAILY@0800 #0 tab.chew 05/08/16 Atorvastatin Calcium [Lipitor] 80 mg PO QHS 30 Days #30 tab 08/02/19 Clopidogrel Bisulfate [Plavix] 75 mg PO DAILY 30 Days #30 tab 08/02/19 Following Prescrptions Were Given to Patient: Atorvastatin Calcium [Lipitor] 80 mg PO QHS 30 Days #30 tab Transmission Status: Received by [id number] Clopidogrel Bisulfate [Plavix] 75 mg PO DAILY 30 Days #30 tab Transmission Status: Received by [id number] Other Amb Orders: 30 Day Event Recorder [facility] [[facility]] Location: None Selected Primary Care Physician: Yuki Borrero MD [Primary Care Provider] - Please follow up with your Primary Care Physician in: within 2 weeks When: Dr. Delatorre, neurology within 2 weeks When: Dr. Lopez Please Follow Up With: in 4 weeks Patient Instructions: Stroke Prevention: Using Blood Thinners (Anticoagulants), What Is Ischemic Stroke?, Stroke: Taking Medications, Stroke Disposition: Home Minutes spent on discharge:: 40 Patient Condition:: Stable Medical Necessity - Tobacco Use Smoking Status: Former smoker Tobacco Use: Chew Meaningful Use Info Meaningful Use Diagnoses (Choose all that apply): None applicable, Ischemic CVA - CVA Therapy Assessed for PT,OT and/or ST?: Yes - Ischemic Stroke Antithrombotic order at d/c?: Yes Dx of Atrial fib/flutter?: No Anticoagulant at discharge?: No Reason anticoagulant not ordered: Treatment not Indicated Statins at discharge?: Yes Primary Dx Acute Ischemic CVA?: Yes IV tPA ordered during stay?: No Reason IV t-PA not ordered: Treatment not Indicated Code Visit Inpatient E&M: 22527 Disch Hosp
[2019-08-02] MEDS: Aspirin 81 MG TAB.CHEW PO (08:06)
[2019-08-02] MEDS: Famotidine 20 MG Tablet PO (08:06)
[2019-08-02] MEDS: Clopidogrel Bisulfate 75 MG Tablet PO (08:06)
[2019-08-02 08:54] LABS: Fibrinogen 246 mg/dl (203-444)
[2019-08-02 09:16] LABS: Lactic Acid 1.1 mmol/L (0.4-1.9)
[2019-08-04 10:00] LABS: HIV - WCH Non-Reactive (Nonreactive)
== END 2019-08-02 10:26 | disposition home or self-care (01) | DRG 66 ==
LOC: ED 09:17 → PCU 12-11 09:27
PROVIDERS: Admitting Provider Internal Medicine; Emergency Provider Emergency Medicine; PCP Internal Medicine; Visit Provider Internal Medicine
DX: I63.9 Cerebral infarction, unspecified (principal); E78.5 Hyperlipidemia, unspecified; F32.9 Major depressive disorder, single episode, unspecified; Z86.73 Personal history of transient ischemic attack (TIA), and cerebral infarction without residual deficits; R20.2 Paresthesia of skin; R20.0 Anesthesia of skin; R29.701 NIHSS score 1; F17.220 Nicotine dependence, chewing tobacco, uncomplicated; Z79.899 Other long term (current) drug therapy; Z79.82 Long term (current) use of aspirin; R53.1 Weakness
CPT/HCPCS: 36415; 70450; 70496; 70498; 70551; 71045; 80048; 80053; 80061; 81240; 81241; 81291; 82962; 83036; 83605; 83695; 84484; 85025; 85240; 85300; 85302; 85303; 85305; 85306; 85384; 85610; 85730; 86147; 86703; 92610; 93005; 93306; 94762; 97161; 97166; 97802; 99218; 99251; 99285; 99406; J7030; Q9967; A4216; G0378; G0463

== ENCOUNTER → 2019-10-13 14:52 | Outpatient (CLI) | payer OTHER, SELFPAY ==
[2019-09-08 13:13] VITALS: BMI 29.2
[2019-10-13 14:46] VITALS: BMI 38.5
[2019-10-13 15:36] LABS: Hematocrit 42.5 % (40-54); Hemoglobin 14.3 g/dL (13.0-16.5); Mean Corp Hgb Conc 33.6 g/dL (32-36); Mean Corpuscular Hgb 30.2 pg (27.0-32.0); Mean Corpuscular Volume 89.7 fL (80-94); Platelet Count 243 K/mm3 (150-450); RBC Distribution Width CV 13.1 % (11.6-14.6); Red Blood Count 4.74 M/mm3 (4.6-6.2); White Blood Count 4.4 K/mm3 (4.4-11.0)
[2019-10-13 16:09] LABS: Anion Gap 4 (5-15); BUN 18 mg/dL (7-18); Calcium,Total 8.7 mg/dL (8.5-10.1); Chloride 109 mmol/L (98-107); EST Glomerular Filtration Rate 95 mL/min (>60); Est Glom Filt Rate - Afr Amer 115 mL/min (>60); Glucose 83 mg/dL (74-106); Potassium 4.2 mmol/L (3.5-5.1); Sodium Level 138 mmol/L (136-145)
== END ==
LOC: LAB 14:54
PROVIDERS: PCP Internal Medicine; Referring Provider Specialist; Visit Provider Specialist
DX: G45.9 Transient cerebral ischemic attack, unspecified (principal); R00.2 Palpitations
CPT/HCPCS: 36415; 80048; 85027

== ENCOUNTER 2019-10-20 10:53 | Day surgery (SDC) | payer OTHER, SELFPAY ==
[2019-09-08 13:13] VITALS: BMI 29.2
--- NOTE | 2019-10-13 02:35 | HP_ITS ---
HPI HPI History of Present Illness Surgical H&P: Yes Details: This is a 49-year-old male who presents the office today for a cardiovascular outpatient follow-up. He has a history of multiple TIA episodes including in April 2016 and July 2019, migraines, palpitations, and hyperlipidemia Due to multiple TIA episodes, it is recommended he proceed with loop recorder placement. His 30-day event monitor in August 2019 showed sinus rhythm and was negative for atrial fibrillation. He denies chest, arm, jaw, or neck discomfort. His exercise tolerance is stable. He denies symptoms of CHF, palpitations, lightheadedness, dizziness, near syncope, or syncopal episodes. He denies edema or claudication issues. He denies orthopnea, PND, fever, blood in urine, blood in stool, myalgia, or unexplainable fatigue. He does acknowledges issues swallowing. He denies any known genetic predisposition for clotting disorders. Intake Vital Signs 10/13/19 Height 5 ft 8 in 10/13/19 Weight: 253 lb 10/13/19 BMI 38.5 10/13/19 BP 123/77 H 10/13/19 Blood Pressure Location Rt brachial 10/13/19 Position Sitting 10/13/19 Respiration 18 10/13/19 Pulse 59 L 10/13/19 Pulse Source Monitor 10/13/19 Pulse Oximetry (%) 98 Intake Visit Reasons: Update and H&P Publishing Agent Required: No Is patient in pain?: No Allergies No Known Allergies Allergy (Verified 09/08/19 13:17) Medications Sertraline HCl [Zoloft] 100 mg PO DAILY 05/07/16 [History Confirmed 10/13/19] Aspirin [Aspirin, Baby] 81 mg PO DAILY@0800 #0 tab.chew 05/08/16 [Rx Confirmed 10/13/19] atorvastatin 80 mg tablet 80 mg PO QHS tab 09/08/19 [History Confirmed 10/13/19] clopidogrel 75 mg tablet 75 mg PO DAILY tab 09/08/19 [History Confirmed 10/13/19] [facility] Medical History Hyperlipidemia (Chronic) Visual field defect (Acute) TIA (transient ischemic attack) (Chronic) CVA (cerebral vascular accident) (Acute) Right sided weakness (Acute) Ataxia (Acute) Depression (Chronic) History of stroke (Chronic) Social History (Updated 10/13/19 @ 14:35 by JIN Pantoja) Smoking Status: Former smoker Smokeless tobacco user: chewing tobacco alcohol intake: current ROS Const Const: Negative for fatigue, weakness, body ache, fever(s) or chills ENT ENT: Negative for dizziness Cardio Chest Pain: No Palpitations: No Edema: None Muscle aches with walking: None Resp Respiratory: Negative for SOB with activity, SOB at rest, SOB orthopnea\SOB lying down or paroxysmal nocturnal dyspnea GI GI: Positive for Difficulty Swallowing; negative nausea, vomiting blood/hematemesis, bright, red blood in stools or black,tarry stools : Negative for hematuria or frequent nighttime urination/ nocturia Musc Musc: Negative for muscle aches/ myalgia Skin Skin: Negative non-healing lesions or rash Neuro Neuro: Negative for dizziness, lightheadedness, near syncope, syncope, orthostatic symptoms or weakness Endo Endo: Negative for fatigue Allergy Allergy/Immunology: Negative for rash Cardiology Exam Const Appearance: cooperative, healthy appearing, comfortable and no acute distress Nutritional Appearance: well nourished and obese Orientation: alert, awake and oriented x3 Head Head: normal to inspection Ears: hearing grossly normal bilaterally Nose: external nose normal Face and Sinus: face symmetric Mouth: oral mucosae normal Eyes General: appearance normal, both eyes and all related structures Eyelids: eyelids normal EOM: EOM intact bilaterally Neck Neck: normal visual inspection and no JVD Carotids: normal carotid upstroke Chest Chest inspection: normal inspection of the chest, symmetric chest movement and normal respiratory effort; negative cough Auscultation: Bilateral: Clear to Auscultation Cardio Rate: regular rate Rhythm: regular rhythm Heart sounds: S1 normal and S2 normal; negative rub, gallop or murmur GI GI: normal to inspection and obese Neuro General: alert, awake, oriented x3 and CN's II-XI intact bilaterally Skin Skin: no rashes or lesions noted Extremities Pulses: Normal: Right Posterior Tibial Pulse, Left Posterior Tibial Pulse, Right Radial Pulse, Left Radial Pulse Lower Extremity Edema: None: Bilateral Psych Psychological: normal affect Assessment & Plan 1. TIA (transient ischemic attack) G45.9 Plan Due to the unexplainable nature, patient will proceed with loop recorder to assess for underlying atrial fibrillation component. His most recent echocardiogram in July 2019 showed preserved ejection and normal atrial sizes. His 30-day event monitor in July 2019 did not reveal any atrial fibrillation. His transesophageal echocardiogram in 2017 was negative for right to left interatrial shunt. He does acknowledge over the years he has noted an intermittent fluttering sensation. He continue to follow with pacemaker clinic on a routine basis to evaluate rhythm. He will continue with Aspirin, Plavix, and Atorvastatin at this time. If atrial fibrillation is noted, his aspirin and Plavix will be adjusted to anticoagulant therapy. 2. Palpitations R00.2 Plan His most recent 30-day event monitor was negative for dysrhythmia. His loop recorder will help assess rhythm component to palpitations. Based on results, further recommendation be made. His EKG today in office shows normal sinus rhythm at a rate of 61 bpm and QTC of 375. Orders Orders: 12 Lead EKG performed by [facility] Today 3. Hyperlipidemia, unspecified hyperlipidemia type E78.5 Plan He will continue current high-dose statin medication. Plan Detail Additional Comments Patient will proceed with outpatient loop recorder placement with Dr. Newsome on 10/20/2019. Thank you for allowing us to participate in the patients plan of care, if you have any questions please do not hesitate to call. This note was generated using a voice recognition system and there may be incorrect words, spelling or punctuation that were not noted when reviewing the office note prior to saving. Follow Up 2 Months (NN) Coding Level of Care Code Off vis,est,level 3 Diagnoses TIA (transient ischemic attack) G45.9 Palpitations R00.2 Hyperlipidemia, unspecified hyperlipidemia type E78.5 ??Hyperlipidemia type: unspecified Coding Level of Care Code Off vis,est,level 3 Diagnoses TIA (transient ischemic attack) G45.9 Palpitations R00.2 Hyperlipidemia, unspecified hyperlipidemia type E78.5 ??Hyperlipidemia type: unspecified Supplemental Info Supplemental Information Echocardiogram from 08/01/2019: Interpretation Summary The estimated ejection fraction is 60 %. No evidence for diastolic dysfunction. Polysomnogram from 06/21/2016: IMPRESSION: Severe obstructive sleep apnea. RECOMMENDATIONS: CPAP titration study. Transesophageal Echocardiogram from 06/15/2016: Interpretation Summary The estimate ejection fraction is 65%. Mildly dilated right ventricle. Bubble contrast study negative for right to left interatrial shunt. No thrombus detected in left atrial appendage. Unable to estimate RV systolic pressure/pulmonary artery pressure due to technically difficult study. Pulmonary venous flow normal. Results conveyed to Dr. Funez at 11:20 AM. 30-day event monitor from July 2019: Sinus rhythm. Sinus tachycardia. Minimum heart rate of 49 bpm. Average heart of 77 bpm. Maximum heart rate of 171 bpm. Tachycardia at 9% total time. Bradycardia at 9% total time. No atrial fibrillation noted. No pauses greater than 3 seconds. Labs LDL Cholesterol 57 mg/dL (0-130) 08/02/19 HDL Cholesterol 55 mg/dL (40-) 08/02/19 Triglycerides 84 mg/dL (-199) 08/02/19 VLDL Cholesterol 17 mg/dL (5-40) 08/02/19 Diagnostics Electrocardiogram 08/01/19 Echocardiogram 08/01/19 Chest X-Ray 08/01/19 10/13/19 [id number] <Electronically signed by Denilson Gonzalez> Date _ Denilson Connelly QUILL SKINNERNagaC
[2019-10-13 14:46] VITALS: BMI 38.5
[2019-10-17 11:42] VITALS: BMI 38.5
--- NOTE | 2019-10-20 12:50 | CL.IE_ITS ---
Patient: SHEA DUMAS Study Date: 10/20/2019 Performing: Barrett Newsome MD : 1970 Age: 49 Gender: male PROCEDURES PERFORMED [id number] OF LOOP RECORDER INDICATIONS Cryptogenic stroke PROCEDURE DETAILS The patient was brought to the Catheterization Lab in the postabsorptive nonsedated state. Infor med consent was obtained prior to the procedure. Local anesthetic was given subcutaneously to the le ft upper chest area with Lidocaine 2%. Incision was made to the left upper chest. ICM Reveal LINQ was inserted into the pocket. Steri-strips applied to Lt chest area. The patient tolerated the procedur e well. Estimated Blood Loss: < 10 mls IMPLANTED / EX-PLANTED DEVICES IMPLANTED DEVICE(S): ICM Reveal LINQ - [employer]: [email or web address], Model # [id number] Serial # [id number] DEVICE PARAMETERS CONCLUSIONS / RECOMMENDATIONS Device Conclusions: Successful implantation of a patient activated loop recorder. Device Recommendations: Follow up with Primary Care Physician PROCEDURE MEDICATIONS Versed 1 mg IV Oxygen: 2 L/min via nasal cannula Antibiotic given in appropriate timeframe. Ancef 2 Gm IV @ 10/20/2019 12:35:45 Signed By Barrett Newsome MD On 10/20/2019 12:48:45 Barrett Newsome MD
== END 2019-10-20 14:00 | disposition home or self-care (01) ==
LOC: CLSP 10:55
PROVIDERS: PCP Internal Medicine; Referring Provider Internal Medicine Cardiovascular Disease; Visit Provider Internal Medicine Cardiovascular Disease
DX: Z45.09 Encounter for adjustment and management of other cardiac device (principal); Z86.73 Personal history of transient ischemic attack (TIA), and cerebral infarction without residual deficits; E78.5 Hyperlipidemia, unspecified; R00.2 Palpitations; Z79.899 Other long term (current) drug therapy; Z79.82 Long term (current) use of aspirin; Z79.02 Long term (current) use of antithrombotics/antiplatelets; F32.9 Major depressive disorder, single episode, unspecified; Z87.891 Personal history of nicotine dependence
CPT/HCPCS: 33285; 99152; J7040

== ENCOUNTER → 2020-04-26 14:51 | Outpatient (CLI) | payer OTHER, SELFPAY ==
[2019-12-22 11:07] VITALS: BMI 27.9
--- NOTE | 2020-04-26 14:55 | VDLE_ITS ---
Reason For Study: Sprain RIGHT GSV is normal. CFV is compressible, spontaneous, phasic, competent and demonstrates normal augmentation. FV is compressible, spontaneous, phasic, competent and demonstrates normal augmentation. POP V is compressible, spontaneous, phasic, competent and demonstrates normal augmentation. T/P Trunk is compressible. PTV is compressible. Acute deep vein thrombosis is noted in the right peroneal vein. Procedure This is a venous duplex using B-mode, color flow and spectral Doppler. Exam performed in department. A preliminary report was called and/or faxed to Trist[facility]. Pt to [facility] office for Rx. Interpretation Summary Acute deep vein thrombosis is noted in the right peroneal vein. The remainder of the right lower extremity deep venous system is patent and compressible. Valvular competence appears intact within the proximal deep venous system on the right . The right great saphenous vein appears patent and compressible segmentally. Ordering Physician: Tristian Pena Referring Physician: Yuki Borrero Performed By: Zenia Brewer RVT
== END ==
PROVIDERS: PCP Internal Medicine; Referring Provider Family Medicine; Visit Provider Family Medicine
DX: S93.401A Sprain of unspecified ligament of right ankle, initial encounter (principal)
CPT/HCPCS: 93971

== ENCOUNTER → 2020-04-30 14:42 | Outpatient (CLI) | payer OTHER, SELFPAY ==
[2019-12-22 11:07] VITALS: BMI 27.9
--- NOTE | 2020-04-30 14:48 | VDLE_ITS ---
Reason For Study: DVT RIGHT GSV is normal. CFV is compressible, spontaneous, phasic, competent and demonstrates normal augmentation. FV is compressible, spontaneous, phasic, competent and demonstrates normal augmentation. POP V is compressible, spontaneous, phasic, competent and demonstrates normal augmentation. T/P Trunk is compressible. PTV is compressible. Acute deep vein thrombosis is noted in the right peroneal vein. Procedure This is a venous duplex using B-mode, color flow and spectral Doppler. Exam performed in department. Compared to 04/26/2020. A preliminary report was called and/or faxed to [facility]. Interpretation Summary Acute deep vein thrombosis is noted in the right peroneal vein. The remainder of the right lower extremity deep venous system is patent and compressible. Valvular competence appears intact within the proximal deep venous system on the right . The right great saphenous vein appears patent and compressible segmentally. There has been no significant change since a prior study on 04/26/2020. Ordering Physician: Tristian Pena Referring Physician: Yuki Borrero Performed By: Zenia Brewer RVT and Student
== END ==
PROVIDERS: PCP Internal Medicine; Referring Provider Family Medicine; Visit Provider Family Medicine
DX: S93.401A Sprain of unspecified ligament of right ankle, initial encounter (principal); I82.4Z1 Acute embolism and thrombosis of unspecified deep veins of right distal lower extremity
CPT/HCPCS: 93971

== ENCOUNTER → 2020-05-10 07:13 | Outpatient (CLI) | payer OTHER, SELFPAY ==
[2019-12-22 11:07] VITALS: BMI 27.9
--- NOTE | 2020-05-10 07:26 | MRI_ITS ---
STUDY: MRI RIGHT ANKLE WITHOUT CONTRAST REASON FOR EXAM: Right ankle lateral and anterior pain, twisting injury 3 weeks ago. TECHNIQUE: Standardized fat and water weighted pulse sequences were obtained in all 3 orthogonal planes. COMPARISON: None. FINDINGS: There is edema in the subcutis adipose space and a hematoma superficial to the anterior talofibular ligament (T2 axial images 14-16) measuring approximately 2.2 cm in AP dimension. There is a very small volume of fluid in the retromalleolar and submalleolar posterior tibialis tendon sheath (inversion recovery sagittal images 16, 18). The posterior tibialis tendon is morphologically normal. Normal flexor digitorum longus tendon. There is a small volume of fluid in the flexor hallucis longus tendon sheath, likely from communication with the tibiotalar articulation. Normal peroneus longus and brevis tendons. Normal tibialis anterior tendon. Normal extensor hallucis longus tendon. There is a small volume of fluid in the extensor digital longus tendon sheath (T2 axial images 11, 12). The extensor digitorum longus tendons are morphologically normal. Normal Achilles tendon and teno-osseous insertion. Normal plantar fascia. Normal plantar calcaneal tubercles. Normal intrinsic muscles of the rearfoot. Normal distal tibiofibular syndesmotic ligamentous complex. There is a tear of the anterior talofibular ligament (inversion recovery axial oblique image 14). Normal calcaneofibular and posterior talofibular ligaments. Normal subtalar ligaments and sinus tarsi. There is a mild sprain of the deltoid ligament (T2 coronal image 17). There are bone contusions of the medial malleolus and medial body of the talus (T2 coronal images 17, 18). Normal plantar calcaneonavicular (spring) ligament. There is a tibiotalar joint effusion (inversion recovery sagittal image 12). Normal talar dome. There is a bone contusion of the lateral aspect of the distal tibia (T2 coronal images 17, 18) and a mild bone contusion of the lateral malleolus (T2 coronal images 19, 20). Normal subtalar articulations. There is a small talonavicular joint effusion (inversion recovery sagittal images 11, 12). There is a bone contusion of the head and neck of the talus (inversion recovery sagittal images 11-14). Normal calcaneocuboid articulation. There is a bone contusion of the dorsal aspect of the anterior calcaneus (inversion recovery sagittal images 6-9) and a small bone contusion of the proximal plantar cuboid (inversion recovery sagittal image 8). Normal navicular-cuneiform articulations. MRI/Lower Ext Joint Only (Routine) IMPRESSION: Tear of the anterior talofibular ligament. Mild sprain of the deltoid ligament. Mild extensor digitorum longus tenosynovitis. Very mild posterior tibialis tenosynovitis. Bone contusions of the talus, distal tibia, lateral malleolus, anterior calcaneus and proximal cuboid. Tibiotalar and talonavicular joint effusions. Hematoma superficial to the anterior talofibular ligament. Electronically Signed: John Patterson MD at 10:01 EST Tel , Service support ,
--- NOTE | 2020-05-10 07:27 | MRI_ITS ---
STUDY: MRI RIGHT MIDFOOT REASON FOR EXAM: Pain across the dorsal aspect of the foot, twisting injury 3 weeks ago. TECHNIQUE: Standardized fat and water weighted pulse sequences were obtained in all 3 orthogonal planes. COMPARISON: None. FINDINGS: There is a small talonavicular joint effusion (inversion recovery sagittal images 16, 17). There is a bone contusion of the head and neck of the talus (inversion recovery sagittal images 16-19). Normal calcaneocuboid articulation. There is a bone contusion of the plantar proximal aspect of the cuboid (inversion recovery sagittal image 11). Normal navicular-cuneiform articulations. Normal intercuneiform articulations. Normal first tarsometatarsal articulation. Normal Lisfranc ligament. Normal second and third tarsometatarsal articulations. Normal cuboid fourth and cuboid fifth tarsometatarsal articulation. Normal first through fifth metatarsi. There is mild arthrosis with mild chondral thinning of the first metatarsophalangeal joint (T1 sagittal images 22, 23). Normal tibialis anterior tendon. Normal extensor hallucis longus tendon. There is a small volume of fluid in the proximal extensor digitorum longus tendon sheath (T2 series 5 image 30). The extensor digitorum longus tendons are morphologically normal. Normal peroneus longus tendon and distal insertion. Normal peroneus brevis tendon and distal insertion. Normal intrinsic muscles of the mid and forefoot region. Normal extensor digitorum brevis muscle. There is edema in the dorsal subcutis adipose space. There is a pressure lesion at the plantar aspect of the fifth metatarsophalangeal joint (T1 sagittal images 5, 6). MRI/Lower Ext/No Jt/w/o IMPRESSION: Bone contusions of the talus and cuboid. Mild extensor digitorum longus tenosynovitis. Mild arthrosis of the first metatarsophalangeal joint. Small talonavicular joint effusion. Pressure lesion at the plantar aspect of the fifth metatarsophalangeal joint. Electronically Signed: John Patterson MD at 9:59 EST Tel , Service support ,
== END ==
PROVIDERS: PCP Internal Medicine; Referring Provider Family Medicine; Visit Provider Family Medicine
DX: S93.401A Sprain of unspecified ligament of right ankle, initial encounter (principal)
CPT/HCPCS: 73718; 73721

== ENCOUNTER → 2020-07-09 07:56 | Outpatient (CLI) | payer OTHER, SELFPAY ==
[2019-12-22 11:07] VITALS: BMI 27.9
--- NOTE | 2020-07-09 07:58 | VDLE_ITS ---
Reason For Study: Acute DVT Rt leg RIGHT GSV is normal. CFV is compressible, spontaneous, phasic, competent and demonstrates normal augmentation. FV is compressible, spontaneous, phasic, competent and demonstrates normal augmentation. POP V is compressible, spontaneous, phasic, competent and demonstrates normal augmentation. T/P Trunk is compressible. PTV is compressible. Acute deep vein thrombosis is noted in the right peroneal vein. Procedure This is a venous duplex using B-mode, color flow and spectral Doppler. Exam performed in department. A preliminary report was called and/or faxed to Jean. Interpretation Summary Acute deep vein thrombosis is noted in the right peroneal vein. The remainder of the right lower extremity deep venous system is patent and compressible. Valvular competence appears intact within the proximal deep venous system on the right . The right great saphenous vein appears patent and compressible segmentally. Ordering Physician: Tristian Pena Referring Physician: Yuki Borrero Performed By: Zenia Brewer RVT
== END ==
PROVIDERS: PCP Internal Medicine; Visit Provider Family Medicine
DX: I82.491 Acute embolism and thrombosis of other specified deep vein of right lower extremity (principal)
CPT/HCPCS: 93971

== ENCOUNTER → 2020-11-09 14:57 | Outpatient (CLI) | payer OTHER, SELFPAY ==
[2019-12-22 11:07] VITALS: BMI 27.9
--- NOTE | 2020-11-09 14:59 | VDLE_ITS ---
Reason For Study: DVT RIGHT LEFT GSV is normal. CFV is compressible, spontaneous, phasic, CFV is compressible, spontaneous, phasic, competent, and demonstrates normal competent and demonstrates normal augmentation. augmentation. FV is compressible, spontaneous, phasic, competent and demonstrates normal augmentation. POP V is compressible, spontaneous, phasic, competent and demonstrates normal augmentation. T/P Trunk is compressible. PTV is compressible. Acute deep vein thrombosis is noted in the right peroneal vein. Procedure This is a venous duplex using B-mode, color flow and spectral Doppler. Exam performed in department. The exam was diagnostic. VL/Venous Duplex US, Unilateral Interpretation Summary Acute deep vein thrombosis is noted in the right peroneal vein. The remainder o f the right lower extremity deep venous system is patent and compressible. Valvular competence ap pears intact within the proximal deep venous system on the right . The right great saphenous vein a ppears patent and compressible segmentally. There has been no significant change since a prior st udy on 07/09/2020. The characteristics of the findings in the left peroneal vein are consistent with a cute, rather than chronic, thrombus. Ordering Physician: Tristian Pena Performed By: Earl Rayo RVT and Student
== END ==
PROVIDERS: PCP Internal Medicine; Referring Provider Family Medicine; Visit Provider Family Medicine
DX: I82.491 Acute embolism and thrombosis of other specified deep vein of right lower extremity (principal)
CPT/HCPCS: 93971

== ENCOUNTER 2021-12-06 04:47 | Emergency (ER) | payer OTHER, SELFPAY ==
[2021-12-06 04:48] VITALS: BP 124/81; PULSE 100; RESP 18; TEMP 36.7; O2SAT 97; BMI 31.4
--- NOTE | 2021-12-06 04:58 | RAD_ITS ---
INDICATION: cough wheezing EXAMINATION/TECHNIQUE: X-RAY - XR Chest 1 View COMPARISON: 08/01/2019 FINDINGS: LINES/DEVICES: None. LUNGS: No consolidation, edema or effusion. No pneumothorax. MEDIASTINUM AND CARDIOVASCULAR STRUCTURES: Loop recorder. Cardiac silhouette not enlarged. Central airways and mediastinal contour are unremarkable. BONES AND SOFT TISSUES: Unremarkable. RAD/Chest 1 View (Portable) IMPRESSION: No acute cardiopulmonary disease. Electronically Signed: Vitor Cleary MD at 5:22 EDT ,
--- NOTE | 2021-12-06 04:58 | EX.ED.VIS.UR ---
HPI HPI - URI History of Present Illness Chief Complaint: Cold Sx Informant: patient Onset/Context/Timing Onset: Days (4) Context: Gradual Onset Timing: Continuous Quality: congested, coughing, wheezing Current Severity: Moderate Maximum Severity: Moderate Worsened by: - (coughing) Relieved by: - (nothing; trying Dayquil equivalent) Associated Symptoms Associated Symptoms: Positive for Nasal Congestion, Myalgias, Shortness of Breath and Productive Cough (occ yellow sputum); Negative for Headache, Sinus Pressure, Nausea, Vomiting, Diarrhea, Chest Pain or Hemoptysis Narrative Narrative: 4 days of bronchitis symptoms that he states are similar to his sister. The only contact he had with his sister recently was going into her home to take shower, which is where his parents live as well. The next day he started having symptoms. She had already been symptomatic. He had fevers and chills on day #1 or 2, but none since. Myalgias are mild. Malaise but not severe. Wheezing without a history of smoking or asthma. ROS ROS ED Constitutional Constitutional ED: Denies chills or fever(s) Eyes Eyes: Denies blurry vision or diplopia ENT ENT ED: Reports nasal congestion, rhinorrhea and sore throat; Denies ear pain Cardiovascular Cardiovascular: Denies chest pain or palpitations Respiratory/Chest Respiratory/Chest: Reports cough, dyspnea and wheezing Gastrointestinal Gastrointestinal: Denies abdominal pain, diarrhea, nausea or vomiting Genitourinary Genitourinary ED: Denies dysuria or hematuria Musculoskeletal Musculoskeletal: Denies myalgias or neck pain Integumentary Denies abscess or rash Neurologic Neurologic: Denies headache(s), paresthesias or weakness Psychiatric Psychiatric: Denies depression or suicidal thoughts Endocrine Endocrinology: Denies polydipsia or polyuria [facility] Medical History (Updated 12/06/21 @ 05:[address] Al Johnson MD) Ataxia CVA (cerebral vascular accident) Depression History of stroke Hyperlipidemia Right sided weakness TIA (transient ischemic attack) Visual field defect Home Medications sertraline 100 mg tablet 100 mg PO DAILY Depression/Anger 05/07/16 [History Last Taken 09/10/17 23:00 150 mg] aspirin 81 mg chewable tablet 81 mg PO DAILY@0800 ##0 05/08/16 [Rx Last Taken 09/10/17 23:00] atorvastatin 80 mg tablet 80 mg PO QHS 09/08/19 [History Last Taken Unknown] clopidogrel 75 mg tablet 75 mg PO DAILY 09/08/19 [History Last Taken Unknown] albuterol sulfate 90 mcg/actuation aerosol inhaler (Ventolin HFA) 2 puff inhalation Q4H PRN PRN Wheezing ##1 12/06/21 [Rx Last Taken Unknown] benzonatate 100 mg capsule 200 mg PO TID PRN PRN Cough #20 CAPSULES 12/06/21 [Rx Last Taken Unknown] Allergy/AdvReac Type Severity Reaction Status Date / Time milk Allergy Intermediate Upset Verified 12/06/21 04:52 Stomach Family History Mother Diabetes Father Myocardial infarction Cancer Surgical History Status post placement of implantable loop recorder (10/20/19) Social History Smoking Status: Former smoker Smokeless tobacco user: chewing tobacco how long ago did patient quit smokin years ago alcohol intake: current alcohol intake frequency: holidays/special occasions only substance use type: does not use caffeine: Yes Type: coffee Number of servings: 1 and tea Number of servings: 2 EXAM Physical Exam Const Vital Signs: 12/06/21 04:48 12/06/21 04:52 Temperature 98.1 F Temperature Source Temporal Pulse Rate 100 Respiratory Rate 18 Respiratory Effort Normal Non-Labored Respiratory Depth Normal Respiratory Pattern Normal Blood Pressure 124/81 H Blood Pressure Mean 95 Pulse Ox 97 Oxygen Delivery Method Room Air Room Air Positive well nourished and well developed General Appearance ED: well developed and NAD HEENT Reports moist mucous membranes HEENT Narrative: Mild diffuse posterior oropharyngeal erythema without exudates or tonsillar abnormality/asymmetry. normocephalic and atraumatic Face and Sinus: Negative for sinus tenderness Eyes PERRL and EOMs intact bilaterally Neck no lymphadenopathy, supple and no meningeal signs Resp normal respiratory effort Resp Narrative: Mild and expiratory wheezing bilaterally, symmetric movement Effort and Inspection: able to speak in complete sentences Cardio no murmurs Rate: regular rate Rhythm: regular rhythm GI non-tender, non-distended and no masses Palpation: soft Back/Spine no CVA tenderness and normal ROM Extremity normal to inspection and full ROM General Extremety ED: Negative for tenderness Neuro oriented x3, CN's II-XII intact bilaterally, no sensory deficits noted and gait normal Sensorium / Orientation: alert Motor Exam: strength 5/5 throughout Psych mental status grossly normal Skin Lesions: no lesions Rashes: no rashes MDM MDM MDM Narrative Medical decision making narrative: Patient is unvaccinated against COVID. We did a rapid COVID swab, rapid influenza swab, and a chest x-ray. 1 view chest x-ray my interpretation negative, radiology in agreement, swabs both negative. Patient was given an albuterol aerosol treatment prior to discharge with a prescription for albuterol and Tessalon Perles, supportive care advised no indication for antibiotics at this time which I discussed with the patient he is understanding of that. Radiography Diagnostic Testing: Clinical Impression(s) from Imaging Studies Chest X-Ray 12/06/21 04:58 IMPRESSION: No acute cardiopulmonary disease. Electronically Signed: Vitor Cleary MD at 5:22 EDT , Discharge Plan Triage Chief Complaint: Cold Sx ED Provider: Al Johnson Dx/Rx/DC Orders Clinical Impression: Acute wheezy bronchitis Instructions: ED Bronchitis with Wheezing (Adult) Prescriptions: New benzonatate [benzonatate] 100 mg capsule 200 mg PO TID PRN PRN (Reason: Cough) Qty: 20 0RF albuterol sulfate [Ventolin HFA] 90 mcg/actuation HFA aerosol inhaler 2 puff inhalation Q4H PRN PRN (Reason: Wheezing) Qty: 1 0RF No Action atorvastatin 80 mg tablet 80 mg PO QHS Label Comments: TAKE 1 TABLET BY MOUTH DAILY AT BEDTIME. FOR CHOLESTEROL. clopidogrel 75 mg tablet 75 mg PO DAILY Label Comments: TAKE 1 TABLET BY MOUTH EVERY DAY sertraline 100 MG tablet 100 mg PO DAILY Label Comments: DEPRESSION/ANGER aspirin 81 MG tablet,chewable 81 mg PO DAILY@0800 Qty: 0 0RF Label Comments: Pt takes at night. Primary Care Provider: Yuki Borrero Referrals: Yuki Borrero MD [Primary Care Provider] - 10-14 Days if not better Disposition Disposition: Home, Self Care
[2021-12-06 05:45] VITALS: PULSE 109; RESP 16; RESP 18; O2SAT 95
[2021-12-06] MEDS: Albuterol 2.5 MG/3 ML VIAL.NEB. INHALATION (05:45)
[2021-12-06 05:49] VITALS: BP 118/81; PULSE 100; RESP 18; O2SAT 96
[2021-12-06] MEDS: Benzonatate 100 MG Capsule 200 MG PO (05:56)
== END 2021-12-06 05:57 | disposition home or self-care (01) ==
PROVIDERS: Emergency Provider Emergency Medicine; PCP Internal Medicine; Visit Provider Emergency Medicine
DX: J20.9 Acute bronchitis, unspecified (principal); E78.5 Hyperlipidemia, unspecified; F32.A Depression, unspecified; Z79.82 Long term (current) use of aspirin; Z79.899 Other long term (current) drug therapy; Z86.73 Personal history of transient ischemic attack (TIA), and cerebral infarction without residual deficits; Z87.891 Personal history of nicotine dependence; Z28.310 Unvaccinated for COVID-19
CPT/HCPCS: 71045; 87428; 94640; 99251; 99283; G0463

== ENCOUNTER 2023-01-31 17:15 | Emergency (ER) | payer OTHER, SELFPAY ==
[2023-01-31 17:16] VITALS: BP 130/83; PULSE 70; RESP 16; TEMP 36.8; O2SAT 97; BMI 30.6
--- NOTE | 2023-01-31 17:39 | EDS_ITS ---
HPI History of Present Illness Chief Complaint: Palpitations Informant: patient Onset/Context/Timing Onset: Days (3 days) Timing: Intermittent and Lasts (15 to 20-seconds) Narrative Narrative: Patient presents with 3-day history of intermittent palpitations. He has a history of prior strokes and has a loop recorder as no etiology of the strokes was ever found. Patient states for the past 3 days has had a brief fluttering sensation in the left chest that will occur intermittently. It will last up to 20 seconds at a time. He has a heavy sensation in his chest at the time. He does not feel short of breath. Patient states he just realized that the monitor he has at home that transmits his loop recorder information had become unplugged. He is unsure when the last transmission may have occurred. [facility] Medical History (Updated 01/31/23 @ 19:[address] Edna Hamilton MD) Ataxia CVA (cerebral vascular accident) Depression History of stroke Hyperlipidemia Right sided weakness TIA (transient ischemic attack) Visual field defect Home Medications sertraline 100 mg tablet 100 mg PO DAILY Depression/Anger 05/07/16 [History Last Taken 09/10/17 23:00 150 mg] aspirin 81 mg chewable tablet 81 mg PO DAILY@0800 ##0 05/08/16 [Rx Last Taken 09/10/17 23:00] atorvastatin 80 mg tablet 80 mg PO QHS 09/08/19 [History Last Taken Unknown] clopidogrel 75 mg tablet 75 mg PO DAILY 09/08/19 [History Last Taken Unknown] albuterol sulfate 90 mcg/actuation aerosol inhaler (Ventolin HFA) 2 puff inhalation Q4H PRN PRN Wheezing ##1 12/06/21 [Rx Last Taken Unknown] benzonatate 100 mg capsule 200 mg (2 x 100 mg) PO TID PRN PRN Cough #20 CAPSULES 12/06/21 [Rx Last Taken Unknown] Allergy/AdvReac Type Severity Reaction Status Date / Time milk Allergy Intermediate Upset Verified 01/31/23 17:18 Stomach Family History Mother Diabetes Father Myocardial infarction Cancer Surgical History Status post placement of implantable loop recorder (10/20/19) Social History Smoking Status: Former smoker Smokeless tobacco user: chewing tobacco how long ago did patient quit smokin years ago alcohol intake: current alcohol intake frequency: holidays/special occasions only substance use type: does not use caffeine: Yes Type: coffee Number of servings: 1 and tea Number of servings: 2 ROS ROS ED Constitutional Constitutional ED: Denies chills or fever(s) Eyes Eyes: Denies change in vision ENT ENT ED: Denies rhinorrhea or sore throat Cardiovascular Cardiovascular: Reports palpitations; Denies chest pain or racing heartbeat Respiratory/Chest Respiratory/Chest: Denies cough or dyspnea Gastrointestinal Gastrointestinal: Denies abdominal pain, nausea or vomiting Musculoskeletal Musculoskeletal: Denies back pain or extremity pain Integumentary Denies Abrasions or rash Neurologic Neurologic: Denies headache(s) or weakness Allergic/Immunologic Allergic/Immunologic ED: Denies lip swelling or urticaria EXAM Physical Exam Const Vital Signs: 01/31/23 17:16 01/31/23 17:26 01/31/23 17:26 Temperature 98.2 F Temperature Source Temporal Pulse Rate 70 Respiratory Rate 16 Respiratory Pattern Normal Blood Pressure 130/83 H Blood Pressure Mean 98 Pulse Ox 97 Oxygen Delivery Method Room Air Room Air Positive well nourished and well developed General Appearance ED: well developed HEENT Reports normocephalic and head/scalp atraumatic Eyes PERRL and EOMs intact bilaterally Neck supple Chest Wall inspection of chest normal and palpation of chest normal Resp normal respiratory effort and clear to auscultation bilaterally Cardio regular rate and regular rhythm GI normal to inspection, nondistended, normoactive bowel sounds Palpation: soft Extremity normal to inspection Neuro oriented x3 and no sensory deficits noted Sensorium / Orientation: alert Motor Exam: strength 5/5 throughout Psych mental status grossly normal Skin no rashes or lesions noted MDM MDM MDM Narrative Medical decision making narrative: Patient placed on cardiac cath technician. EKG obtained to evaluate for cardiac arrhythmia/ischemia. Chest x-ray obtained to evaluate for acute lung pathology, cardiac size, or mediastinal abnormality. Labwork obtained to evaluate for leukocytosis, anemia, and electrolyte derangement. History & Record Review Discussion w/independent historian: Patient Additional record(s) reviewed:: Prior outpatient record, Prior ED visit and Prior labs Lab Data Attestation: I reviewed the patient's lab results. Labs: Laboratory Results - last 24 hr 01/31/23 17:55 WBC 4.2 L RBC 4.53 L Hgb 13.9 Hct 41.2 MCV 90.9 MCH 30.7 MCHC 33.7 RDW Std Deviation 44.7 H RDW Coeff of Sameera 13.3 Plt Count 237 MPV 9.1 Immature Gran % (Auto) 0.000 Neut % (Auto) 51.4 Lymph % (Auto) 33.0 Elliott % (Auto) 12.5 H Eos % (Auto) 1.9 Baso % (Auto) 1.2 H Absolute Neuts (auto) 2.1 Absolute Lymphs (auto) 1.37 Nucleated RBC % 0 Sodium 140 Potassium 3.9 Chloride 108 H Carbon Dioxide 28.0 Anion Gap 4 L BUN 15 Creatinine 1.06 Estim Creat Clear Calc 78.87 Est GFR (MDRD) Af Amer 94 Est GFR (MDRD) Non-Af 78 BUN/Creatinine Ratio 14.2 Glucose 100 Calcium 8.6 Troponin I High Sens < 3 L Radiography Chest X-Ray - ED: 1 View, Read by ED Physician, Chronic Changes and No Infiltrates Diagnostic Testing: Clinical Impression(s) from Imaging Studies Chest X-Ray 01/31/23 17:55 IMPRESSION: No definite acute or significant abnormality seen. Electronically Signed: Javier Conklin MD at 18:39 EDT , EKG Initial EKG: Interpretation: Sinus Rhythm (Sinus at 66 with no acute ischemia.) Treatment and Re-Evaluation :: CBC reveals low white count of 4.2. Hemoglobin is normal at 13.9. Chemistry studies reveal normal potassium at 3.9. Renal function is normal. Troponin is less than 3. Portable chest x-ray per my interpretation was chronic changes with no acute findings. Radiology interpretation is reviewed. EKG is sinus with no acute ischemia. On repeat evaluation patient states he is had a couple episodes where he felt a flutter. He noted the time and I went back to review the cardiac cath technician. Patient had a single PVC at each of these episodes. Patient be discharged to home and advised to call his cardiology office in the morning. He voices understanding and agreement. Return instructions provided. Discharge Plan Triage Chief Complaint: Palpitations ED Provider: Edna Hamilton Dx/Rx/DC Orders Clinical Impression: Palpitations, PVC (premature ventricular contraction) Instructions: PVCs, ED Palpitations Prescriptions: No Action atorvastatin 80 mg tablet 80 mg PO QHS Patient Comments: TAKE 1 TABLET BY MOUTH DAILY AT BEDTIME. FOR CHOLESTEROL. clopidogrel 75 mg tablet 75 mg PO DAILY Patient Comments: TAKE 1 TABLET BY MOUTH EVERY DAY sertraline 100 MG tablet 100 mg PO DAILY Patient Comments: DEPRESSION/ANGER aspirin 81 MG tablet,chewable 81 mg PO DAILY@0800 Qty: 0 0RF Patient Comments: Pt takes at night. benzonatate [benzonatate] 100 mg capsule 200 mg PO TID PRN PRN (Reason: Cough) Qty: 20 0RF albuterol sulfate [Ventolin HFA] 90 mcg/actuation HFA aerosol inhaler 2 puff inhalation Q4H PRN PRN (Reason: Wheezing) Qty: 1 0RF Primary Care Provider: Yuki Borrero Referrals: Yuki Borrero MD [Primary Care Provider] - Barrett Newsome MD [Med Staff - Active Staff] - As soon as possible Disposition Disposition: Home, Self Care
--- NOTE | 2023-01-31 17:55 | RAD_ITS ---
STUDY: X-RAY CHEST REASON FOR EXAM: Male, 52 years old. palpitations TECHNIQUE: Single AP portable view of the chest. COMPARISON: 12/06/2021. FINDINGS: The lungs are clear and expanded. There is no demonstrated pleural abnormality. Normal size heart. Implanted lunchroom monitor seen in typical location. Normal mediastinum and chely. Normal visualized pulmonary arteries. Normal visualized aortic arch and descending thoracic aorta. Normal visualized thoracic spine. Normal visualized ribs, clavicles, and shoulders. There is no demonstrated abnormality of the visualized soft tissue structures of the upper abdomen. RAD/Chest 1 View (Portable) IMPRESSION: No definite acute or significant abnormality seen. Electronically Signed: Javier Conklin MD at 18:39 EDT ,
[2023-01-31 18:00] LABS: Absolute Lymphocyte Count 1.37 X10^3/uL (0.83-4.51); Absolute Neutrophil Count 2.1 X10^3/uL (2.0-7.7); Basophil# 0.05 X10^3/uL; Basophil% 1.2 % (0-1); Eosinophil# 0.08 X10^3/uL; Eosinophils% 1.9 % (0-5); Hematocrit 41.2 % (40-54); Hemoglobin 13.9 g/dL (13.0-16.5); Lymphocyte # 1.37 X10^3/ul (0.83-4.51); Mean Corp Hgb Conc 33.7 g/dL (32-36); Mean Corpuscular Hgb 30.7 pg (27.0-32.0); Mean Corpuscular Volume 90.9 fL (80-94); Mean Platelet Vol. 9.1 fl (6.2-12.0); Monocyte# 0.52 X10^3/uL; Monocyte% 12.5 % (0-10); NRBC Flagged by Analyzer 0 % (0-5); Neutrophil # 2.13 X10^3/uL (2.7-7.7); Neutrophil % 51.4 % (47-70); Platelet Count 237 K/mm3 (150-450); RBC Distribution Width CV 13.3 % (11.6-14.6); RBC Distribution Width SD 44.7 fl (35.1-43.9); Red Blood Count 4.53 M/mm3 (4.6-6.2); White Blood Count 4.2 K/mm3 (4.4-11.0)
[2023-01-31 18:29] LABS: Anion Gap 4 (5-15); BUN 15 mg/dL (7-18); BUN/Creat Ratio 14.2 RATIO (10-20); Calcium,Total 8.6 mg/dL (8.5-10.1); Chloride 108 mmol/L (98-107); Creatinine, Serum 1.06 mg/dL (0.70-1.30); EST Glomerular Filtration Rate 78 mL/min (>60); Est Glom Filt Rate - Afr Amer 94 mL/min (>60); Estimated Creatinine Clearance 78.87 ml/min; Glucose 100 mg/dL (74-106); Potassium 3.9 mmol/L (3.5-5.1); Sodium Level 140 mmol/L (136-145); Troponin-I HS < 3 pg/mL (3.0-78.0)
[2023-01-31 19:16] VITALS: BP 111/71
== END 2023-01-31 19:31 | disposition home or self-care (01) ==
PROVIDERS: Emergency Provider Emergency Medicine; PCP Internal Medicine; Visit Provider Emergency Medicine
DX: R00.2 Palpitations (principal); I49.3 Ventricular premature depolarization; Z86.73 Personal history of transient ischemic attack (TIA), and cerebral infarction without residual deficits; Z87.891 Personal history of nicotine dependence
CPT/HCPCS: 71045; 80048; 84484; 85025; 93005; 99285; A4216

== ENCOUNTER → 2023-02-21 | Outpatient (CLI) | payer OTHER, SELFPAY | END | disposition home or self-care (01) | LOC: PSN 08:19 | PROVIDERS: PCP Internal Medicine; Referring Provider Physician Assistant Medical; Visit Provider Physician Assistant Medical | DX: I49.9 Cardiac arrhythmia, unspecified (principal); I63.9 Cerebral infarction, unspecified; R00.2 Palpitations; G45.9 Transient cerebral ischemic attack, unspecified | CPT/HCPCS: 93225; 93226 ==

== ENCOUNTER → 2023-03-14 | Outpatient (CLI) | payer OTHER, SELFPAY ==
[2023-03-14 13:44] LABS: Anion Gap 4 (5-15); BUN 16 mg/dL (7-18); BUN/Creat Ratio 16.1 RATIO (10-20); Calcium,Total 8.7 mg/dL (8.5-10.1); Chloride 104 mmol/L (98-107); Creatinine, Serum 0.99 mg/dL (0.70-1.30); EST Glomerular Filtration Rate 84 mL/min (>60); Est Glom Filt Rate - Afr Amer 101 mL/min (>60); Glucose 100 mg/dL (74-106); Magnesium 2.3 mg/dL (1.6-2.6); Potassium 4.2 mmol/L (3.5-5.1); Sodium Level 136 mmol/L (136-145)
== END | disposition home or self-care (01) ==
LOC: PR 12:40 → LAB 12:43
PROVIDERS: PCP Internal Medicine; Referring Provider Internal Medicine Cardiovascular Disease; Visit Provider Internal Medicine Cardiovascular Disease
DX: R00.2 Palpitations (principal); I49.3 Ventricular premature depolarization
CPT/HCPCS: 36415; 80048; 83735; 84443

== ENCOUNTER → 2023-03-26 | Outpatient (CLI) | payer OTHER, SELFPAY ==
--- NOTE | 2023-03-26 06:03 | ECHOD_ITS ---
Reason For Study: CHEST PAIN Procedure This was a 2D Doppler, Color Flow transthoracic echocardiogram. Exam performed in department. Left Ventricle Normal left ventricle. The left ventricular ejection fraction is 65 %. Normal diastology for age. Right Ventricle Normal right ventricle. Atria The left and right atria are normal. Mitral Valve Trivial mitral valve insufficiency. Tricuspid Valve Trivial tricuspid valve insufficiency. Normal pulmonary artery pressure. Aortic Valve Trisinus/trileaflet aortic valve. Pulmonic Valve The pulmonic valve is not well visualized. Great Vessels Normal sized aortic root. Pericardium/Pleural No pericardial effusion. MMode/2D Measurements & Calculations LVIDd: 4.5 cm IVSd: 0.69 cm Ao root diam: 3.1 cm LVIDs: 3.1 cm LVPWd: 0.78 cm RVDd: 3.7 cm FS: 32.3 % LAV(MOD-bp): 34.1 ml LVAd ap4: 30.4 cm2 SV(MOD-sp4): 52.7 ml LAV(MOD-bp) Indexed: 16.6 ml/m2 LVLd ap4: 8.9 cm LAV(MOD-sp2): 34.9 ml EDV(MOD-sp4): 85.7 ml LAV(MOD-sp4): 33.2 ml EDV(sp4-el): 88.2 ml LVAs ap4: 16.7 cm2 LVLs ap4: 7.2 cm ESV(MOD-sp4): 33.1 ml ESV(sp4-el): 32.9 ml EF(MOD-sp4): 61.4 % EF(sp4-el): 62.7 % SV(sp4-el): 55.3 ml LA A4 area: 14.0 cm2 LA dimension(2D): 3.2 cm RA A4 area: 13.7 cm2 Time Measurements MV dec time: 0.21 sec Doppler Measurements & Calculations MV E max sunny: 76.9 cm/sec Lat Peak E' Sunny: 18.1 cm/sec Med Peak E' Sunny: 9.5 cm/sec MV A max sunny: 45.9 cm/sec E/E' lat: 4.2 E/E' med: 8.1 MV E/A: 1.7 Ao V2 max: 106.0 cm/sec LV V1 max: 86.0 cm/sec PA V2 max: 102.7 cm/sec Ao max P.5 mmHg LV V1 max P.0 mmHg TR max sunny: 180.4 cm/sec TR max P.0 mmHg ECHO/Echo Complete Interpretation Summary The left ventricular ejection fraction is 65 %. Ordering Physician: Valeriy Hinkle Referring Physician: TONYA PERLA Performed By: Stefanie Flynn RDCS
== END | disposition home or self-care (01) ==
LOC: CVS 06:03
PROVIDERS: PCP Internal Medicine; Referring Provider Internal Medicine Cardiovascular Disease; Visit Provider Internal Medicine Cardiovascular Disease
DX: I49.3 Ventricular premature depolarization (principal); R00.2 Palpitations; R07.9 Chest pain, unspecified; Z95.818 Presence of other cardiac implants and grafts
CPT/HCPCS: 78452; 93017; 93306; A9500; A4216

== ENCOUNTER 2023-11-06 07:48 | Emergency (ER) | payer OTHER, SELFPAY ==
[2023-11-06 07:48] VITALS: BP 130/92; PULSE 89; RESP 14; TEMP 36.2; O2SAT 100
[2023-11-06 08:11] VITALS: BMI 28.5
--- NOTE | 2023-11-06 08:15 | CT_ITS ---
STUDY: CT ABDOMEN AND PELVIS WITHOUT CONTRAST REASON FOR EXAM: Male, 53 years old. Kidney Stone. Testicular pain and back pain. RADIATION DOSAGE (If Supplied By Facility): CTDIvol = ( 10.3 ) mGy, DLP = ( 551.3 ) mGycm TECHNIQUE: Transaxial images were obtained from the dome of the diaphragm to the symphysis pubis without oral contrast, and without intravenous contrast. Sagittal and coronal images were reconstructed. Individualized dose optimization techniques were used for this CT. COMPARISON: Comparison is made with prior study dated April 27, 2017. FINDINGS: The visualized lung bases are unremarkable. The visualized portions of the heart are within normal limits. Normal liver. Normal gallbladder and extrahepatic biliary system. Normal spleen. Normal pancreas. Normal bilateral adrenal glands. There is a 2.5 mm calculus in the upper pole calyx of the right kidney. Punctate calculus is seen in the lower pole calyx of the right kidney. Mild degree of right hydronephrosis. A punctate calculus is seen at the right ureterovesical junction. Mild degree of left hydronephrosis. Small left parapelvic cyst. There is a 1.6 cm cyst in the lower pole calyx of the left kidney. There is a moderate-sized hiatal hernia. Circumferential wall thickening of the gastroesophageal junction. Endoscopic correlation is recommended. Normal small intestine. Normal colon. The appendix is visualized and appears normal. Normal abdominal aorta. Normal inferior vena cava. There is borderline retroperitoneal lymphadenopathy with enlarged nodes no greater than 10mm in the short axis diameter. Bladder wall thickening although the bladder is not completely distended. There is a small umbilical hernia containing fat. This space narrowing at the L3-L4 level. CT/Abdomen/Pelvis without Cont IMPRESSION: Moderate-sized hiatal hernia with thickening of the gastroesophageal junction. Endoscopic correlation is recommended. There are tiny nonobstructive right intrarenal calculi. Punctate calculus at the right ureterovesical junction. Electronically Signed: Pollo López MD at 9:22 EDT ,
--- NOTE | 2023-11-06 08:16 | EX.ED.GUMALE ---
HPI History of Present Illness Chief Complaint: Male Pain/Injury Informant: patient Narrative Narrative: 53-year-old male presenting to the emergency room with a chief complaint of testicular suprapubic and back pain. Patient states that this morning he was walking into work when he began to have pain right suprapubic right testicle right flank. He states that he has the urge to urinate frequently but sometimes only small amounts come out. He notes a bowel movement this normal morning that was normal. He denies fever. He states he cannot get comfortable. He notes a familial history of kidney stones. He denies any swelling in the scrotum or suprapubic region. He denies any inciting event. No fever. He associates the symptoms with nausea. He denies dysuria rashes or drainage from the penis. [facility] Medical History Hx of deep venous thrombosis Generalized skin lesions Deviated septum Lactose intolerance Dyspepsia BARNARD (dyspnea on exertion) Arthritis of both knees Asthma Frequent PVCs Irregular heartbeat Palpitations Difficulty swallowing Depression Hyperlipidemia TIA (transient ischemic attack) Visual field defect History of stroke CVA (cerebral vascular accident) Ataxia Right sided weakness Home Medications ?Medication ?Instructions ?Recorded ?Last Taken ?Type sertraline 100 mg tablet 100 mg PO DAILY Depression/Anger 05/07/16 09/10/17 23:00 History 150 mg atorvastatin 80 mg tablet 80 mg PO QHS 09/08/19 Unknown History clopidogrel 75 mg tablet 75 mg PO DAILY 09/08/19 Unknown History albuterol sulfate 90 mcg/actuation 2 puff inhalation Q4H PRN PRN 12/06/21 Unknown Rx aerosol inhaler (Ventolin HFA) Wheezing ##1 metoprolol succinate 25 mg 25 mg PO DAILY resending RX in 03/05/23 Unknown Rx tablet,extended release 24 hr case med reshelved #30 tabs aspirin 81 mg tablet,delayed 81 mg PO DAILY 03/06/23 Unknown History release ondansetron 4 mg disintegrating 4 mg PO Q6H PRN PRN Nausea #12 tabs 11/06/23 Unknown Rx tablet oxycodone-acetaminophen 5 mg-325 1 tab PO Q8H PRN pain 3 days #12 11/06/23 Unknown Rx mg tablet (Percocet) tabs Allergy/AdvReac Type Severity Reaction Status Date / Time cat dander Allergy Intermediate Chest Verified 11/06/23 07:49 tightness milk Allergy Intermediate Upset Verified 11/06/23 07:49 Stomach Family History Mother Diabetes Father Myocardial infarction Cancer liver mets, unsure of primary (heavy smoker) CAD (coronary artery disease) Grandfather CAD (coronary artery disease) Grandmother CAD (coronary artery disease) Aunt CAD (coronary artery disease) Uncle CAD (coronary artery disease) Surgical History Status post placement of implantable loop recorder (10/20/19) Social History Smoking Status: Former smoker quit date: 03/23/00 Smokeless tobacco user: chewing tobacco how long ago did patient quit smokin years ago alcohol intake: current alcohol intake frequency: holidays/special occasions only substance use type: does not use caffeine: Yes Type: carbonated beverages Number of servings: 1 and tea Number of servings: 1 ROS ROS ED Constitutional Constitutional ED: Denies chills or weight loss Eyes Eyes: Denies change in vision or diplopia ENT ENT ED: Denies ear pain, rhinorrhea or sore throat Cardiovascular Cardiovascular: Denies chest pain, orthopnea, palpitations or racing heartbeat Respiratory/Chest Respiratory/Chest: Denies cough, dyspnea or orthopnea Gastrointestinal Gastrointestinal: Reports abdominal pain and nausea; Denies diarrhea or vomiting Genitourinary Genitourinary ED: Reports flank pain, low back pain and other Details: Right testicular pain ; Denies dysuria, external genitalia discoloration, genital lesions, hematuria, penile discharge, penile swelling, scrotal swelling, testicular mass, testicular swelling or urinary frequency Musculoskeletal Musculoskeletal: Denies arthralgias or myalgias Integumentary Denies abscess or rash Neurologic Neurologic: Denies headache(s) or weakness Psychiatric Psychiatric: Denies anxiety, depression, suicidal ideation or suicidal thoughts Endocrine Endocrinology: Denies polydipsia, polyphagia or polyuria Allergic/Immunologic Allergic/Immunologic ED: Denies mouth swelling, tongue swelling or urticaria EXAM Physical Exam Narrative Exam Narrative: 53-year-old male writhing in the bed. Const Vital Signs: 11/06/23 07:48 11/06/23 10:03 Temperature 97.2 F L Temperature Source Temporal Pulse Rate 89 Respiratory Rate 14 16 Blood Pressure 130/92 H 135/76 H Blood Pressure Mean 104 95 Pulse Ox 100 95 Oxygen Delivery Method Room Air Room Air Positive well nourished and well developed General Appearance ED: well developed HEENT Reports normocephalic, head/scalp atraumatic and moist mucous membranes Eyes PERRL and EOMs intact bilaterally Neck no lymphadenopathy, supple and no JVD Resp normal respiratory effort and clear to auscultation bilaterally Cardio regular rate, regular rhythm and no murmurs GI normal to inspection, nondistended, normoactive bowel sounds and non-tender Palpation: soft no CVA tenderness Narrative: Ureteral meatus appears normal with no drainage. There is no rashes. I do not appreciate scrotal mass or inguinal mass. He notes mild tenderness to palpation of the right testicle. No scrotal swelling or erythema. There is normal lie of the testicles. Positive cremasteric reflexes. There is no flank ecchymosis. Meatus: meatus normal Scrotum: testes descended bilaterally Testes: Negative for testicular swelling, testicular mass or blue dot sign Back/Spine no CVA tenderness and normal ROM Extremity normal to inspection General Extremety ED: Negative for edema General Extremity: Negative for edema Neuro oriented x3 and CN's II-XII intact bilaterally Sensorium / Orientation: alert Motor Exam: strength 5/5 throughout Psych mental status grossly normal Mood & Affect: Negative for depressed or tearful Skin no rashes or lesions noted and no wounds MDM MDM MDM Narrative Medical decision making narrative: Differential diagnosis includes but not limited to UTI kidney stone appendicitis colitis psoas hematoma testicular torsion adenitis/orchitis Urinalysis shows 25-50 red blood cells no obvious infection. White count 5.2 hemoglobin [address]1. Creatinine 1.25. CT of the abdomen pelvis without oral or IV contrast was obtained which shows a punctate stone in the distal ureter. Patient received Toradol morphine Zofran and fluids and is improved on repeat examination. Patient will be discharged home with pain and nausea medications. I think his pain is most likely related to his kidney stone and the testicular pain is related to a referred pain from the stone. Patient notes understanding of the plan as well as the need for potential follow-up or return ED visit History & Record Review Discussion w/independent historian: Patient Lab Data Attestation: I reviewed the patient's lab results. Labs: Laboratory Results - last 24 hr 11/06/23 08:30 WBC 5.1 RBC 4.95 Hgb 15.1 Hct 44.7 MCV 90.3 MCH 30.5 MCHC 33.8 RDW Std Deviation 44.0 H RDW Coeff of Sameera 13.4 Plt Count 269 MPV 9.0 Immature Gran % (Auto) 0.000 Neut % (Auto) 49.6 Lymph % (Auto) 35.8 [place] % (Auto) 11.0 H Eos % (Auto) 2.6 Baso % (Auto) 1.0 Absolute Neuts (auto) 2.5 Absolute Lymphs (auto) 1.82 Nucleated RBC % 0 Sodium 139 Potassium 3.6 Chloride 108 H Carbon Dioxide 26.0 Anion Gap 5 BUN 13 Creatinine 1.25 Estim Creat Clear Calc 72.69 Est GFR (MDRD) Af Amer 78 Est GFR (MDRD) Non-Af 64 BUN/Creatinine Ratio 10.4 Glucose 130 H Calcium 9.0 Urine Color Yellow Urine Clarity Sl. Cloudy Urine pH 5.0 Ur Specific [place] 1.025 Urine Protein 30 H Urine Glucose (UA) Normal Urine Ketones Negative Urine Occult Blood 250 H Urine Nitrite Negative Urine Bilirubin Negative Urine Urobilinogen 1 H Ur Leukocyte Esterase 25 H Urine RBC 25-50 SEEN Urine WBC 0-5 SEEN Ur Squamous Epith Cells 0 SEEN Calcium Oxalate Crystal RARE Urine Bacteria 1+ Urine Mucus 1+ Radiography Diagnostic Testing: Clinical Impression(s) from Imaging Studies Abdomen/Pelvis CT 11/06/23 08:15 IMPRESSION: Moderate-sized hiatal hernia with thickening of the gastroesophageal junction. Endoscopic correlation is recommended. There are tiny nonobstructive right intrarenal calculi. Punctate calculus at the right ureterovesical junction. Electronically Signed: Pollo López MD at 9:22 EDT , Discharge Plan Triage Chief Complaint: Male Pain/Injury ED Provider: Noah Khan Dx/Rx/DC Orders Clinical Impression: Kidney stone on right side, Abdominal pain Instructions: ED Kidney Stone with Pain Prescriptions: New oxycodone-acetaminophen [Percocet] 5-325 mg tablet 1 tab PO Q8H PRN (Reason: pain) 3 Days Qty: 12 0RF ondansetron 4 mg tablet,disintegrating 4 mg PO Q6H PRN PRN (Reason: Nausea) Qty: 12 0RF No Action atorvastatin 80 mg tablet 80 mg PO QHS Patient Comments: TAKE 1 TABLET BY MOUTH DAILY AT BEDTIME. FOR CHOLESTEROL. clopidogrel 75 mg tablet 75 mg PO DAILY Patient Comments: TAKE 1 TABLET BY MOUTH EVERY DAY aspirin 81 mg tablet,delayed release (DR/EC) 81 mg PO DAILY sertraline 100 MG tablet 100 mg PO DAILY Patient Comments: DEPRESSION/ANGER albuterol sulfate [Ventolin HFA] 90 mcg/actuation HFA aerosol inhaler 2 puff inhalation Q4H PRN PRN (Reason: Wheezing) Qty: 1 0RF metoprolol succinate 25 mg tablet extended release 24 hr 25 mg PO DAILY Qty: 30 11RF Primary Care Provider: Yuki Borrero Referrals: Yuki Borrero MD [Primary Care Provider] - 1 Week if not improving Print Language: Amharic Disposition Disposition: Home, Self Care
[2023-11-06] MEDS: Morphine 4 MG/ML Syringe IV (08:24)
[2023-11-06] MEDS: Ketorolac 30 MG/ML Syringe IV (08:24)
[2023-11-06] MEDS: 0.9% Normal Saline (1000mL) 1,000 ML 250 ML IV (08:24)
[2023-11-06] MEDS: Ondansetron 4 MG/2 ML Vial IV (08:24)
[2023-11-06 08:38] LABS: Squamous Epithelial Cells - UA 0 SEEN /hpf (0-5)
[2023-11-06 08:43] LABS: Absolute Lymphocyte Count 1.82 X10^3/uL (0.83-4.51); Absolute Neutrophil Count 2.5 X10^3/uL (2.0-7.7); Basophil# 0.05 X10^3/uL; Eosinophil# 0.13 X10^3/uL; Eosinophils% 2.6 % (0-5); Hematocrit 44.7 % (40-54); Hemoglobin 15.1 g/dL (13.0-16.5); Lymphocyte # 1.82 X10^3/ul (0.83-4.51); Lymphocyte % 35.8 % (19-41); Mean Corp Hgb Conc 33.8 g/dL (32-36); Mean Corpuscular Hgb 30.5 pg (27.0-32.0); Mean Corpuscular Volume 90.3 fL (80-94); Monocyte# 0.56 X10^3/uL; NRBC Flagged by Analyzer 0 % (0-5); Neutrophil # 2.53 X10^3/uL (2.7-7.7); Neutrophil % 49.6 % (47-70); Platelet Count 269 K/mm3 (150-450); RBC Distribution Width CV 13.4 % (11.6-14.6); Red Blood Count 4.95 M/mm3 (4.6-6.2); White Blood Count 5.1 K/mm3 (4.4-11.0)
[2023-11-06 09:07] LABS: Color, Urine Yellow (Yellow); Glucose, Dipstick Normal (Normal); Ketone-Dipstick Negative (Negative); Leukocyte Esterase-Dipstick 25 /ul (Negative); Nitrite-Dipstick Negative (Negative); Occult Blood-Urine 250 /ul (Negative); Protein-Dipstick 30 mg/dl (Negative); Specific Gravity, Urine 1.025 (1.002-1.030); Urine Bilirubin Dipstick Negative (Negative); Urine Clarity Sl. Cloudy (Clear); Urine Urobilinogen 1 mg/dl (Normal)
[2023-11-06 09:13] LABS: Anion Gap 5 (5-15); BUN 13 mg/dL (7-18); BUN/Creat Ratio 10.4 RATIO (10-20); Chloride 108 mmol/L (98-107); Creatinine, Serum 1.25 mg/dL (0.70-1.30); EST Glomerular Filtration Rate 64 mL/min (>60); Est Glom Filt Rate - Afr Amer 78 mL/min (>60); Estimated Creatinine Clearance 72.69 ml/min; Glucose 130 mg/dL (74-106); Potassium 3.6 mmol/L (3.5-5.1); Sodium Level 139 mmol/L (136-145)
[2023-11-06 09:18] LABS: Bacteria 1+ /hpf (None Seen); Mucous, Urine 1+ /hpf (<or=2+); Red Blood Cells-Urine 25-50 SEEN /hpf (0-5); White Blood Cells 0-5 SEEN /hpf (0-5)
[2023-11-06 09:19] LABS: Calcium Oxalate Crystals Ur RARE /hpf (<or=2+)
[2023-11-06 10:03] VITALS: BP 135/76; RESP 16; O2SAT 95
[2023-11-06 10:15] VITALS: BP 134/87; PULSE 72; RESP 16; TEMP 36.4; O2SAT 99
== END 2023-11-06 10:16 | disposition home or self-care (01) ==
PROVIDERS: Emergency Provider Emergency Medicine; PCP Internal Medicine; Visit Provider Emergency Medicine
DX: N20.2 Calculus of kidney with calculus of ureter (principal); J45.909 Unspecified asthma, uncomplicated; Z86.718 Personal history of other venous thrombosis and embolism; Z86.73 Personal history of transient ischemic attack (TIA), and cerebral infarction without residual deficits; Z87.891 Personal history of nicotine dependence
CPT/HCPCS: 74176; 80048; 81001; 85025; 96374; 96375; 99282; J7030; A4216; J2405

== ENCOUNTER 2023-11-09 06:19 | Emergency (ER) | payer OTHER, SELFPAY ==
[2023-11-09 06:20] VITALS: BP 141/82; PULSE 72; RESP 16; TEMP 36.3; O2SAT 95; BMI 29.2
--- NOTE | 2023-11-09 06:27 | CT_ITS ---
EXAM: CT Abdomen And Pelvis W/O Contrast Injection HISTORY: Pain TECHNIQUE: Routine protocol CT abdomen and pelvis. IV Contrast: None.. Oral contrast: None. RADIATION DOSAGE (If Supplied By Facility): CTDIvol = ( 7.96 ) mGy, DLP = ( 381.74 ) mGycm Individualized dose optimization techniques were used for this CT. COMPARISON: CT abdomen and pelvis 11/06/2023. LIMITATIONS: None. FINDINGS: LOWER CHEST: Included lung bases are clear. Small hiatal hernia with wall thickening of the distal esophagus as on the prior, with adjacent enlarged lymph node. LIVER: Grossly unremarkable. GALLBLADDER AND BILIARY TREE: Grossly unremarkable. PANCREAS: Grossly unremarkable. SPLEEN: Grossly unremarkable. ADRENAL GLANDS: Grossly unremarkable. KIDNEYS AND URETERS: Tiny calculus in the distal right ureter at the ureterovesical junction unchanged from prior. The right ureter is dilated with moderate right hydronephrosis, increased compared to prior. Other small calculi in the right kidney. No hydronephrosis on the left. A few small cysts in the left kidney PERITONEUM: No free air. No free fluid. BOWEL: No bowel obstruction. APPENDIX: Visualized and unremarkable. No evidence of acute appendicitis. VESSELS: Abdominal aorta is normal caliber. REPRODUCTIVE ORGANS: Grossly unremarkable URINARY BLADDER: Grossly unremarkable. ABDOMINAL WALL: Small bilateral inguinal hernias containing only fat, no bowel. BONES: No acute abnormalities. CT/Abdomen/Pelvis without Cont IMPRESSION: Right hydroureteronephrosis increased compared to prior with no change in the distal right ureteral calculus at the UVJ. Right nephrolithiasis. Wall thickening distal esophagus with paraesophageal adenopathy. As noted previously, endoscopic correlation recommended. Electronically Signed: Tressa Grant MD at 7:52 EDT ,
--- NOTE | 2023-11-09 06:30 | EX.ED.DYSGE1 ---
HPI History of Present Illness Chief Complaint: Flank Pain Detail of Chief Complaint: Right flank pain Informant: patient Narrative Narrative: Patient presents with right flank pain that started around 11 PM last night. Patient states that he was seen in the emergency department few days ago and diagnosed with a right-sided kidney stone near the bladder and then he was also told that he had smaller stones in the right kidney as well up to 4 mm. Patient has been doing well until last night. Now rates the pain anywhere between a 7 and 10 and waxes and wanes in intensity. He had some nausea but no vomiting. He had some mild dysuria yesterday but that is resolved. Denies fevers or chills or sweats. [facility] Medical History Hx of deep venous thrombosis Generalized skin lesions Deviated septum Lactose intolerance Dyspepsia BARNARD (dyspnea on exertion) Arthritis of both knees Asthma Frequent PVCs Irregular heartbeat Palpitations Difficulty swallowing Depression Hyperlipidemia TIA (transient ischemic attack) Visual field defect History of stroke CVA (cerebral vascular accident) Ataxia Right sided weakness Home Medications ?Medication ?Instructions ?Recorded ?Last Taken ?Type sertraline 100 mg tablet 100 mg PO DAILY Depression/Anger 05/07/16 09/10/17 23:00 History 150 mg atorvastatin 80 mg tablet 80 mg PO QHS 09/08/19 Unknown History clopidogrel 75 mg tablet 75 mg PO DAILY 09/08/19 Unknown History albuterol sulfate 90 mcg/actuation 2 puff inhalation Q4H PRN PRN 12/06/21 Unknown Rx aerosol inhaler (Ventolin HFA) Wheezing ##1 metoprolol succinate 25 mg 25 mg PO DAILY resending RX in 03/05/23 Unknown Rx tablet,extended release 24 hr case med reshelved #30 tabs aspirin 81 mg tablet,delayed 81 mg PO DAILY 03/06/23 Unknown History release ondansetron 4 mg disintegrating 4 mg PO Q6H PRN PRN Nausea #12 tabs 11/06/23 Unknown Rx tablet oxycodone-acetaminophen 5 mg-325 1 tab PO Q8H PRN pain 3 days #12 11/06/23 Unknown Rx mg tablet (Percocet) tabs Allergy/AdvReac Type Severity Reaction Status Date / Time cat dander Allergy Intermediate Chest Verified 11/09/23 06:23 tightness milk Allergy Intermediate Upset Verified 11/09/23 06:23 Stomach Family History Mother Diabetes Father Myocardial infarction Cancer liver mets, unsure of primary (heavy smoker) CAD (coronary artery disease) Grandfather CAD (coronary artery disease) Grandmother CAD (coronary artery disease) Aunt CAD (coronary artery disease) Uncle CAD (coronary artery disease) Surgical History Status post placement of implantable loop recorder (10/20/19) Social History Smoking Status: Former smoker quit date: 03/23/00 Smokeless tobacco user: chewing tobacco how long ago did patient quit smokin years ago alcohol intake: current alcohol intake frequency: holidays/special occasions only substance use type: does not use caffeine: Yes Type: carbonated beverages Number of servings: 1 and tea Number of servings: 1 ROS ROS ED Review of Systems ROS Unobtainable: other Constitutional Constitutional ED: Reports lethargy; Denies chills, fever(s), sweats or weight loss Eyes Eyes: Denies blurry vision, change in vision or diplopia ENT ENT ED: Denies rhinorrhea or sore throat Cardiovascular Cardiovascular: Denies chest pain, orthopnea or racing heartbeat Respiratory/Chest Respiratory/Chest: Denies cough, dyspnea, dyspnea on exertion, orthopnea or sputum Gastrointestinal Gastrointestinal: Reports nausea; Denies abdominal pain, diarrhea or vomiting Genitourinary Genitourinary ED: Denies dysuria, hematuria or urinary frequency Musculoskeletal Musculoskeletal: Reports back pain; Denies arthralgias, myalgias or neck pain Integumentary Denies abscess, Abrasions or rash Neurologic Neurologic: Denies headache(s) or weakness Psychiatric Psychiatric: Denies anxiety, depression or suicidal thoughts Endocrine Endocrinology: Denies polydipsia, polyphagia or polyuria Hematologic/Lymphatic Hematologic/Lymphatic: Denies easy bleeding, easy bruising or lymphadenopathy Allergic/Immunologic Allergic/Immunologic ED: Denies mouth swelling, tongue swelling or urticaria EXAM Physical Exam Const Vital Signs: 11/09/23 06:20 Temperature 97.4 F L Temperature Source Temporal Pulse Rate 72 Respiratory Rate 16 Blood Pressure 141/82 H Blood Pressure Mean 101 Pulse Ox 95 Oxygen Delivery Method Room Air Positive well nourished and well developed General Appearance ED: well developed and NAD HEENT Reports TM's clear and moist mucous membranes normocephalic and atraumatic; Negative for trauma or tenderness Tympanic Membrane ED: Yes TM's clear Eyes PERRL and EOMs intact bilaterally General Eye ED: Negative for pale conjunctiva or scleral icterus Neck no lymphadenopathy, supple and no JVD General: Negative for tenderness Chest Wall inspection of chest normal and palpation of chest normal Chest: Negative for tenderness Resp normal respiratory effort and clear to auscultation bilaterally Effort and Inspection: Negative for respiratory distress or pain with movement Auscultation: Negative for rhonchi, wheezes or diminished lung sounds Cardio regular rate, regular rhythm, S1 normal heart sound, S2 normal heart sound and no murmurs Peripheral Pulses: pulses 2+ throughout GI normal to inspection, nondistended, normoactive bowel sounds, soft to palpation, non-distended and no masses GI Narrative: Mild tenderness to the right lower quadrant with some mild guarding. There is no rebound, rigidity, or pineal signs Back/Spine no thoracic nor lumbar tenderness Back/Spine Narrative: Right CVA tenderness Extremity normal to inspection General Extremety ED: Negative for edema General Extremity: Negative for edema Neuro oriented x3, CN's II-XII intact bilaterally, no sensory deficits noted and gait normal Sensorium / Orientation: awake, alert, oriented to person, oriented to place and oriented to time Motor Exam: strength 5/5 throughout and strength abnormal Psych mental status grossly normal Skin no rashes or lesions noted and no wounds MDM MDM MDM Narrative Medical decision making narrative: Patient presents with right-sided flank pain with recent history of right UVJ kidney stone diagnosed 2 days ago. Patient was also told he may have some smaller stones in the right kidney as well. IV line established. He was medicated with morphine, Zofran, and Toradol. CBC with differential white count of 5.4 with hemoglobin 14 and platelet count of 241. Chemistries unremarkable. Urinalysis ordered and pending. Care of patient turned over to morning physician awaiting CT results and urinalysis and final disposition Lab Data Attestation: I reviewed the patient's lab results. Labs: Laboratory Results - last 24 hr 05/31/24 06:32 WBC 5.4 RBC 4.65 Hgb 14.0 Hct 43.0 MCV 92.5 MCH 30.1 MCHC 32.6 RDW Std Deviation 45.3 H RDW Coeff of Sameera 13.5 Plt Count 241 MPV 9.2 Immature Gran % (Auto) 0.200 Neut % (Auto) 63.9 Lymph % (Auto) 20.1 [place] % (Auto) 12.7 H Eos % (Auto) 2.2 Baso % (Auto) 0.9 Absolute Neuts (auto) 3.5 Absolute Lymphs (auto) 1.09 Nucleated RBC % 0 Sodium 138 Potassium 4.1 Chloride 107 Carbon Dioxide 29.0 Anion Gap 2 L BUN 14 Creatinine 1.07 Estim Creat Clear Calc 85.78 Est GFR (MDRD) Af Amer 93 Est GFR (MDRD) Non-Af 77 BUN/Creatinine Ratio 13.1 Glucose 107 H Calcium 8.9 Discharge Plan Triage Chief Complaint: Flank Pain ED Provider: Pollo Sheth Dx/Rx/DC Orders Clinical Impression: Acute flank pain Prescriptions: No Action atorvastatin 80 mg tablet 80 mg PO QHS Patient Comments: TAKE 1 TABLET BY MOUTH DAILY AT BEDTIME. FOR CHOLESTEROL. clopidogrel 75 mg tablet 75 mg PO DAILY Patient Comments: TAKE 1 TABLET BY MOUTH EVERY DAY aspirin 81 mg tablet,delayed release (DR/EC) 81 mg PO DAILY sertraline 100 MG tablet 100 mg PO DAILY Patient Comments: DEPRESSION/ANGER albuterol sulfate [Ventolin HFA] 90 mcg/actuation HFA aerosol inhaler 2 puff inhalation Q4H PRN PRN (Reason: Wheezing) Qty: 1 0RF oxycodone-acetaminophen [Percocet] 5-325 mg tablet 1 tab PO Q8H PRN (Reason: pain) 3 Days Qty: 12 0RF ondansetron 4 mg tablet,disintegrating 4 mg PO Q6H PRN PRN (Reason: Nausea) Qty: 12 0RF metoprolol succinate 25 mg tablet extended release 24 hr 25 mg PO DAILY Qty: 30 11RF Primary Care Provider: Yuki Borrero Referrals: Yuki Borrero MD [Primary Care Provider] - Print Language: Estonian
[2023-11-09] MEDS: Morphine 4 MG/ML Syringe IV ×2 (06:37→09:21)
[2023-11-09] MEDS: Ondansetron 4 MG/2 ML Vial IV (06:37)
[2023-11-09] MEDS: 0.9% Normal Saline (1000mL) 1,000 ML 125 ML IV (06:37)
[2023-11-09] MEDS: Ketorolac 15 MG/ML Vial IV (06:37)
[2023-11-09 06:44] LABS: Absolute Lymphocyte Count 1.09 X10^3/uL (0.83-4.51); Absolute Neutrophil Count 3.5 X10^3/uL (2.0-7.7); Basophil# 0.05 X10^3/uL; Basophil% 0.9 % (0-1); Eosinophil# 0.12 X10^3/uL; Eosinophils% 2.2 % (0-5); Lymphocyte # 1.09 X10^3/ul (0.83-4.51); Lymphocyte % 20.1 % (19-41); Mean Corp Hgb Conc 32.6 g/dL (32-36); Mean Corpuscular Hgb 30.1 pg (27.0-32.0); Mean Corpuscular Volume 92.5 fL (80-94); Mean Platelet Vol. 9.2 fl (6.2-12.0); Monocyte# 0.69 X10^3/uL; Monocyte% 12.7 % (0-10); NRBC Flagged by Analyzer 0 % (0-5); Neutrophil # 3.46 X10^3/uL (2.7-7.7); Neutrophil % 63.9 % (47-70); Platelet Count 241 K/mm3 (150-450); RBC Distribution Width CV 13.5 % (11.6-14.6); RBC Distribution Width SD 45.3 fl (35.1-43.9); Red Blood Count 4.65 M/mm3 (4.6-6.2); White Blood Count 5.4 K/mm3 (4.4-11.0)
[2023-11-09 06:54] LABS: Anion Gap 2 (5-15); BUN 14 mg/dL (7-18); BUN/Creat Ratio 13.1 RATIO (10-20); Calcium,Total 8.9 mg/dL (8.5-10.1); Chloride 107 mmol/L (98-107); Creatinine, Serum 1.07 mg/dL (0.70-1.30); EST Glomerular Filtration Rate 77 mL/min (>60); Est Glom Filt Rate - Afr Amer 93 mL/min (>60); Estimated Creatinine Clearance 85.78 ml/min; Glucose 107 mg/dL (74-106); Potassium 4.1 mmol/L (3.5-5.1); Sodium Level 138 mmol/L (136-145)
[2023-11-09 08:15] LABS: Color, Urine Yellow (Yellow); Glucose, Dipstick Normal (Normal); Ketone-Dipstick Negative (Negative); Leukocyte Esterase-Dipstick 25 /ul (Negative); Nitrite-Dipstick Negative (Negative); Occult Blood-Urine 250 /ul (Negative); Protein-Dipstick 15 mg/dl (Negative); Urine Bilirubin Dipstick Negative (Negative); Urine Clarity Clear (Clear); Urine Urobilinogen Normal (Normal)
[2023-11-09 08:27] LABS: Bacteria 1+ /hpf (None Seen); Mucous, Urine 1+ /hpf (<or=2+); Squamous Epithelial Cells - UA 0-5 SEEN /hpf (0-5); White Blood Cells 0-5 SEEN /hpf (0-5)
[2023-11-09 08:28] LABS: Red Blood Cells-Urine 0-5 SEEN /hpf (0-5)
[2023-11-09 08:32] LABS: Renal Epithelial Cells 0-5 SEEN /hpf (0-5)
[2023-11-09 09:24] VITALS: BP 116/80; PULSE 54; RESP 16; TEMP 36.2; O2SAT 98
[2023-11-09 09:30] VITALS: BP 116/80; PULSE 54; RESP 16; TEMP 36.2; O2SAT 98
== END 2023-11-09 09:32 | disposition home or self-care (01) ==
PROVIDERS: Emergency Provider Emergency Medicine; PCP Internal Medicine; Visit Provider Emergency Medicine
DX: R10.9 Unspecified abdominal pain (principal); J45.909 Unspecified asthma, uncomplicated; Z87.891 Personal history of nicotine dependence; Z86.718 Personal history of other venous thrombosis and embolism; Z86.73 Personal history of transient ischemic attack (TIA), and cerebral infarction without residual deficits
CPT/HCPCS: 74176; 80048; 81001; 85025; 96361; 96374; 96375; 96376; 99282; J7030; A4216; J2405

== ENCOUNTER 2024-01-25 16:37 | Emergency (ER) | payer OTHER, SELFPAY ==
[2024-01-25 16:39] VITALS: BP 145/98; PULSE 88; RESP 18; TEMP 35.8; O2SAT 99; BMI 28.4
[2024-01-25 17:05] LABS: Bacteria 0 SEEN /hpf (None Seen); Red Blood Cells-Urine 0 SEEN /hpf (0-5); Squamous Epithelial Cells - UA 0 SEEN /hpf (0-5)
[2024-01-25 17:23] LABS: Color, Urine Yellow (Yellow); Glucose, Dipstick Normal (Normal); Ketone-Dipstick Negative (Negative); Leukocyte Esterase-Dipstick 25 /ul (Negative); Nitrite-Dipstick Negative (Negative); Occult Blood-Urine 10 /ul (Negative); Protein-Dipstick 15 mg/dl (Negative); Specific Gravity, Urine 1.025 (1.002-1.030); Urine Clarity Clear (Clear); Urine Urobilinogen 1 mg/dl (Normal)
[2024-01-25 17:49] LABS: Urine Bilirubin Dipstick 1 mg/dL (Negative)
[2024-01-25 17:54] LABS: Mucous, Urine 1+ /hpf (<or=2+); White Blood Cells 0 SEEN /hpf (0-5)
[2024-01-25 18:38] VITALS: BP 128/85; PULSE 60; RESP 16; O2SAT 98
--- NOTE | 2024-01-25 18:58 | EX.ED.DYSGE1 ---
HPI History of Present Illness Chief Complaint: Complaint [facility] Medical History Hx of deep venous thrombosis Generalized skin lesions Deviated septum Lactose intolerance Dyspepsia BARNARD (dyspnea on exertion) Arthritis of both knees Asthma Frequent PVCs Irregular heartbeat Palpitations Difficulty swallowing Depression Hyperlipidemia TIA (transient ischemic attack) Visual field defect History of stroke CVA (cerebral vascular accident) Ataxia Right sided weakness Home Medications ?Medication ?Instructions ?Recorded ?Last Taken ?Type sertraline 100 mg tablet 100 mg PO DAILY Depression/Anger 05/07/16 09/10/17 23:00 History 150 mg atorvastatin 80 mg tablet 80 mg PO QHS 09/08/19 Unknown History clopidogrel 75 mg tablet 75 mg PO DAILY 09/08/19 Unknown History albuterol sulfate 90 mcg/actuation 2 puff inhalation Q4H PRN PRN 12/06/21 Unknown Rx aerosol inhaler (Ventolin HFA) Wheezing ##1 metoprolol succinate 25 mg 25 mg PO DAILY resending RX in 03/05/23 Unknown Rx tablet,extended release 24 hr case med reshelved #30 tabs aspirin 81 mg tablet,delayed 81 mg PO DAILY 03/06/23 Unknown History release ondansetron 4 mg disintegrating 4 mg PO Q6H PRN PRN Nausea #12 tabs 11/06/23 Unknown Rx tablet oxycodone-acetaminophen 5 mg-325 1 tab PO Q8H PRN pain 3 days #12 11/06/23 Unknown Rx mg tablet (Percocet) tabs ibuprofen 600 mg tablet 600 mg PO Q6H PRN PRN pain #20 11/09/23 Unknown Rx TABLETS oxycodone-acetaminophen 5 mg-325 1 tab PO Q6H PRN pain 3 days #12 11/09/23 Unknown Rx mg tablet (Endocet) tabs tamsulosin 0.4 mg capsule (Flomax) 0.4 mg PO DAILY #7 caps 11/09/23 Unknown Rx Allergy/AdvReac Type Severity Reaction Status Date / Time cat dander Allergy Intermediate Chest Verified 01/25/24 16:39 tightness milk Allergy Intermediate Upset Verified 01/25/24 16:39 Stomach Family History Mother Diabetes Father Myocardial infarction Cancer liver mets, unsure of primary (heavy smoker) CAD (coronary artery disease) Grandfather CAD (coronary artery disease) Grandmother CAD (coronary artery disease) Aunt CAD (coronary artery disease) Uncle CAD (coronary artery disease) Surgical History Status post placement of implantable loop recorder (10/20/19) Social History Smoking Status: Former smoker quit date: 03/23/00 Smokeless tobacco user: chewing tobacco how long ago did patient quit smokin years ago alcohol intake: current alcohol intake frequency: holidays/special occasions only substance use type: does not use caffeine: Yes Type: carbonated beverages Number of servings: 1 and tea Number of servings: 1 EXAM Physical Exam Const Vital Signs: 01/25/24 16:39 01/25/24 18:38 Temperature 96.4 F L Temperature Source Temporal Pulse Rate 88 60 Respiratory Rate 18 16 Blood Pressure 145/98 H 128/85 H Blood Pressure Mean 113 99 Pulse Ox 99 98 Oxygen Delivery Method Room Air Room Air MDM MDM MDM Narrative Medical decision making narrative: HISTORY OF PRESENT ILLNESS: 53-year-old male presents with lower abdominal pain and urinary retention. Notes that he was recently seen for a kidney stone. States he feels similar today. Denies vomiting but notes nausea. Denies chest pain or shortness of breath. Denies painful urination. Denies testicular pain, rash or lesions. He is not sexually active is not concerned for STDs. REVIEW OF SYSTEMS: Pertinent positives: Lower abdominal pain, urinary retention Pertinent negatives: Fever, vomiting PHYSICAL EXAM: Nursing triage notes reviewed, Vital signs reviewed Constitutional: please see mdm HENT: MMM Eyes: Pupils equal round and reactive to light, Extraocular muscles intact Neck: No stridor, no JVD, full neck ROM Lungs: Clear to auscultation, No wheezing or rales. No increased work of breathing, no conversational dyspnea, no accessory muscle use, no nasal flaring. No respiratory distress noted Heart: Regular rate and rhythm, No murmurs, No rubs and No gallops, 2+ distal pulses (radial, femoral, posterior tibial) in all extremities Abdomen: Soft, there is no tenderness, rigidity, rebound or guarding, no obvious peritoneal signs, no palpable pulsatile abdominal masses, no auscultated abdominal bruit : No CVAT Extremities: No edema Neuro: No focal neurological deficits, cranial nerves II through XII intact, 5/5 strength in all extremities. Intact sensation to light touch in all extremities, 2+ reflexes bilateral patella tendons. Normal gait. No ataxia. Skin: No rash or lesions noted MEDICAL DECISION MAKING: Chief Complaint: Lower abdominal pain External records reviewed: Imaging reviewed: CT scan abdomen pelvis from October 2023 shows right hydronephrosis, UVJ stone Factors affecting care: nephrolithiasis, hyperlipidemia, Social determinants of health: none History obtained from others: none Consults: none MDM Narrative: Patient was hemodynamically stable, afebrile and nontoxic-appearing. Exam without CVA tenderness. I considered the following differential diagnosis: Nephrolithiasis, hydronephrosis, urinary retention, UTI, AAA I obtained a broad lab and imaging workup to further elucidate the etiology the patient's complaint. Treated patient with1 L normal saline, 15 mg of IV Toradol and 4 mg of IV Zofran for initial resuscitation and symptom control. ALL IMAGES (IF OBTAINED) HAVE BEEN PERSONALLY REVIEWED AND INTERPRETED BY MYSELF. CT scan of the abdomen pelvis read reviewed personally myself shows evidence of a right ureteral calculus approximately 2 to 3 mm in diameter with accompanying hydronephrosis. Radiologist notes a right 4 mm calculus CBC without leukocytosis, severe anemia, no thrombocytopenia. BMP without evidence of significant electrolyte abnormalities, no anion gap, no acute kidney injury. Urinalysis without infection The synthesis the patient's history, physical exam, labs were suggest nephrolithiasis. Patient's kidney stones of the size and location to pass spontaneously. Will give oxycodone, Zofran and instructions to take plenty of fluid and urology follow-up. The patient and/or family, caregivers express understanding. The patient and/or family, caregivers agrees with the plan. Shared decision making: I will have a discussion with the patient and or visitors regarding risk/benefits of further testing or admission. They will be made aware of of the risk/benefits inherent in this decision they will be given the opportunity to voice understanding. Total critical care time today provided was at least 0 minutes. This excludes separately billable procedures. Critical care time (if documented) is secondary to the patient having high probability of clinically significant/life threatening deterioration in the patient's condition which required my urgent intervention. Impression: 1. Nephrolithiasis 2. Hydronephrosis Dispo: Discharge home This note was generated with [employer] dictation software. It may contain incorrect words, spelling, and punctuation that were not noted in review of the chart prior to signing. Lab Data Labs: Laboratory Results - last 24 hr 01/25/24 01/25/24 17:00 19:25 WBC 10.1 RBC 4.87 Hgb 14.5 Hct 44.5 MCV 91.4 MCH 29.8 MCHC 32.6 RDW Std Deviation 45.4 H RDW Coeff of Sameera 13.4 Plt Count 240 MPV 9.3 Immature Gran % (Auto) 0.400 Neut % (Auto) 86.2 H Lymph % (Auto) 6.7 L [place] % (Auto) 6.3 Eos % (Auto) 0.1 Baso % (Auto) 0.3 Absolute Neuts (auto) 8.7 H Absolute Lymphs (auto) 0.68 L Nucleated RBC % 0 Sodium 142 Potassium 3.8 Chloride 109 H Carbon Dioxide 28.0 Anion Gap 5 BUN 16 Creatinine 1.14 Estim Creat Clear Calc 79.50 Est GFR (MDRD) Af Amer 86 Est GFR (MDRD) Non-Af 71 BUN/Creatinine Ratio 14.0 Glucose 99 Calcium 8.6 Urine Color Yellow Urine Clarity Clear Urine pH 6.0 Ur Specific [place] 1.025 Urine Protein 15 H Urine Glucose (UA) Normal Urine Ketones Negative Urine Occult Blood 10 H Urine Nitrite Negative Urine Bilirubin 1 H Urine Urobilinogen 1 H Ur Leukocyte Esterase 25 H Urine RBC 0 SEEN Urine WBC 0 SEEN Ur Squamous Epith Cells 0 SEEN Urine Bacteria 0 SEEN Urine Mucus 1+ Radiography Diagnostic Testing: Clinical Impression(s) from Imaging Studies Abdomen/Pelvis CT 01/25/24 20:13 IMPRESSION: Obstruction of the right collecting system due to a 4 mm stone at the UVJ. There is moderate right-sided hydronephrosis and hydroureter. Electronically Signed: Melo Geronimo MD at 21:01 EDT , Discharge Plan Triage Chief Complaint: Complaint ED Provider: Johny Orozco Dx/Rx/DC Orders Prescriptions: No Action atorvastatin 80 mg tablet 80 mg PO QHS Patient Comments: TAKE 1 TABLET BY MOUTH DAILY AT BEDTIME. FOR CHOLESTEROL. clopidogrel 75 mg tablet 75 mg PO DAILY Patient Comments: TAKE 1 TABLET BY MOUTH EVERY DAY aspirin 81 mg tablet,delayed release (DR/EC) 81 mg PO DAILY sertraline 100 MG tablet 100 mg PO DAILY Patient Comments: DEPRESSION/ANGER albuterol sulfate [Ventolin HFA] 90 mcg/actuation HFA aerosol inhaler 2 puff inhalation Q4H PRN PRN (Reason: Wheezing) Qty: 1 0RF oxycodone-acetaminophen [Percocet] 5-325 mg tablet 1 tab PO Q8H PRN (Reason: pain) 3 Days Qty: 12 0RF ondansetron 4 mg tablet,disintegrating 4 mg PO Q6H PRN PRN (Reason: Nausea) Qty: 12 0RF oxycodone-acetaminophen [Endocet] 5-325 mg tablet 1 tab PO Q6H PRN (Reason: pain) 3 Days Qty: 12 0RF ibuprofen 600 mg tablet 600 mg PO Q6H PRN PRN (Reason: pain) Qty: 20 0RF tamsulosin [Flomax] 0.4 mg capsule 0.4 mg PO DAILY Qty: 7 0RF metoprolol succinate 25 mg tablet extended release 24 hr 25 mg PO DAILY Qty: 30 11RF Primary Care Provider: Yuki Borrero Referrals: Yuki Borrero MD [Primary Care Provider] - Print Language: Vietnamese
[2024-01-25 19:32] LABS: Absolute Lymphocyte Count 0.68 X10^3/uL (0.83-4.51); Absolute Neutrophil Count 8.7 X10^3/uL (2.0-7.7); Basophil# 0.03 X10^3/uL; Basophil% 0.3 % (0-1); Eosinophil# 0.01 X10^3/uL; Eosinophils% 0.1 % (0-5); Hematocrit 44.5 % (40-54); Hemoglobin 14.5 g/dL (13.0-16.5); Lymphocyte # 0.68 X10^3/ul (0.83-4.51); Lymphocyte % 6.7 % (19-41); Mean Corp Hgb Conc 32.6 g/dL (32-36); Mean Corpuscular Hgb 29.8 pg (27.0-32.0); Mean Corpuscular Volume 91.4 fL (80-94); Mean Platelet Vol. 9.3 fl (6.2-12.0); Monocyte# 0.64 X10^3/uL; Monocyte% 6.3 % (0-10); NRBC Flagged by Analyzer 0 % (0-5); Neutrophil # 8.69 X10^3/uL (2.7-7.7); Neutrophil % 86.2 % (47-70); Platelet Count 240 K/mm3 (150-450); RBC Distribution Width CV 13.4 % (11.6-14.6); RBC Distribution Width SD 45.4 fl (35.1-43.9); Red Blood Count 4.87 M/mm3 (4.6-6.2); White Blood Count 10.1 K/mm3 (4.4-11.0)
[2024-01-25 19:49] LABS: Anion Gap 5 (5-15); BUN 16 mg/dL (7-18); Calcium,Total 8.6 mg/dL (8.5-10.1); Chloride 109 mmol/L (98-107); Creatinine, Serum 1.14 mg/dL (0.70-1.30); EST Glomerular Filtration Rate 71 mL/min (>60); Est Glom Filt Rate - Afr Amer 86 mL/min (>60); Glucose 99 mg/dL (74-106); Potassium 3.8 mmol/L (3.5-5.1); Sodium Level 142 mmol/L (136-145)
--- NOTE | 2024-01-25 20:13 | CT_ITS ---
EXAM: CT ABDOMEN AND PELVIS WITHOUT INTRAVENOUS CONTRAST CLINICAL INDICATION: Kidney Stone TECHNIQUE: Helically acquired images were obtained of the abdomen and pelvis without intravenous contrast. This CT exam was performed using one or more of the following dose reduction techniques: automated exposure control, adjustment of the mA and/or kV according to patient size, and/or use of iterative reconstruction technique. COMPARISON: 11/09/2023 FINDINGS: LOWER THORAX: Unremarkable. Lung bases are clear. No cardiomegaly. No significant pericardial effusion. ABDOMEN: LIVER: Unremarkable. Homogeneous. GALLBLADDER AND BILE DUCTS: Unremarkable. No calcified gallstones. No gallbladder distention or wall edema. No intra- or extrahepatic biliary ductal dilation. PANCREAS: Unremarkable. No focal cystic mass. SPLEEN: Unremarkable. Normal size without focal cystic or solid mass. ADRENALS: Unremarkable. No nodules. KIDNEYS AND URETERS: There is right-sided hydronephrosis and hydroureter. There is a 4 mm stone at the right UVJ. There are peripelvic cysts in the left kidney. STOMACH AND BOWEL: Unremarkable. No stomach or bowel distention. No focal inflammatory change. PELVIS: APPENDIX: No evidence of acute appendicitis. BLADDER: Unremarkable. REPRODUCTIVE: Unremarkable as visualized. No mass. ABDOMEN and PELVIS: INTRAPERITONEAL SPACE: Unremarkable. No ascites or other fluid collection. No free air. BONES/JOINTS: Unremarkable. No suspicious lytic or blastic abnormality. SOFT TISSUES: Unremarkable. No discrete abdominal or pelvic wall hernia. VASCULATURE: Unremarkable. Abdominal aorta is non-dilated. LYMPH NODES: Unremarkable. No enlarged lymph nodes. CT/Abdomen/Pelvis without Cont IMPRESSION: Obstruction of the right collecting system due to a 4 mm stone at the UVJ. There is moderate right-sided hydronephrosis and hydroureter. Electronically Signed: Melo Geronimo MD at 21:01 EDT ,
[2024-01-25 21:41] VITALS: BP 123/79; PULSE 86; RESP 18; TEMP 37.4; O2SAT 95
== END 2024-01-25 21:43 | disposition home or self-care (01) ==
PROVIDERS: Emergency Provider Emergency Medicine; PCP Internal Medicine; Visit Provider Emergency Medicine
DX: N13.2 Hydronephrosis with renal and ureteral calculous obstruction (principal); Z87.891 Personal history of nicotine dependence; R10.30 Lower abdominal pain, unspecified; E78.5 Hyperlipidemia, unspecified; Z86.73 Personal history of transient ischemic attack (TIA), and cerebral infarction without residual deficits; F32.A Depression, unspecified; Z79.899 Other long term (current) drug therapy; Z79.02 Long term (current) use of antithrombotics/antiplatelets
CPT/HCPCS: 74176; 80048; 81001; 85025; 96374; 96375; 96376; 99283; A4216; J2405